=== PATIENT | male | born 1935 | race Caucasian/White ===

== ENCOUNTER 2020-08-11 00:04 | Emergency (ER) | payer OTHER, SELFPAY ==
[2020-08-11 00:22] VITALS: BP 182/80; PULSE 69; RESP 16; TEMP 36.8; O2SAT 98; BMI 27.6
[2020-08-11 00:35] LABS: Add Manual Diff / Slide Review NO; Basophils Absolute Auto 0 /uL (0-100); Basophils Percent Auto 0.6 % (0-2); Eosinophils Absolute Auto 200 /uL (0-450); Eosinophils Percent Auto 2.7 % (2-4); Lymphocytes Absolute Auto 1300 /uL (1100-4500); Lymphocytes Percent Auto 18.8 % (25-40); Mean Corpuscular HGB Conc 33.3 % (30-36); Mean Corpuscular Hemoglobin 30.2 PG (26-34); Mean Corpuscular Volume 90.8 fL (80-100); Monocytes Absolute Auto 1100 /uL (0-900); Neutrophils Absolute Auto 4300 /uL (1500-7000); Neutrophils Percent Auto 61.9 % (50-75); Platelet Count 171 X10^3/uL (150-400); Red Blood Cell Count 4.63 X10^6/uL (4.5-5.9); Red Cell Distribution Width 14.1 % (11.6-14.8)
[2020-08-11 00:41] LABS: Prothrombin Time 11.2 SECONDS (10.1-12.7)
[2020-08-11 00:43] LABS: PTT Partial Thromboplastin Tim 30 SECONDS (26.4-36.2)
[2020-08-11 00:46] LABS: Alanine Aminotransferase 27 IU/L (<50); Albumin 4.3 g/dL (3.5-5.0); Albumin Globulin Ratio 1.3 (1.0-2.8); Alkaline Phosphatase 79 U/L (38-126); Aspartate Aminotransferase 33 IU/L (17-59); BUN Creatinine Ratio 20.6 (6-22); Bilirubin Total 1.1 mg/dL (0.2-1.3); Blood Urea Nitrogen 21 mg/dL (9-20); Calcium 9.2 mg/dL (8.4-10.2); Carbon Dioxide 34 mmol/L (22-32); Chloride 100 mmol/L (98-107); Estimated Glomerular Filt Rate > 60.0 mL/min (>60); Globulin 3.2 g/dL (1.7-4.1); Glucose 113 mg/dL (80-110); HEMOLYSIS < 15 (0-50); Lipase 106 U/L (23-300); Potassium 4.5 mmol/L (3.4-5.1); Sodium 135 mmol/L (137-145); Total Protein 7.5 g/dL (6.3-8.2)
--- NOTE | 2020-08-11 00:56 | ED.ABDPAIN ---
HPI - Abdominal Pain General Chief Complaint: Abdominal Pain Stated Complaint: Pain in abd x3 days Time Seen by Provider: 08/11/20 00:10 Source: patient Mode of arrival: Ambulatory Limitations: no limitations History of Present Illness HPI narrative: 84-year-old male nonsmoker with history of hypertension presents with a chief complaint of about 3 days of right lower quadrant pain. He states that he feels like it came on rather suddenly. He states that it seems to get worse when he lays flat and is improved with sitting up. He denies any radiation of the pain. He states that is sharp and crampy in nature and 6/10 in severity. He denies any history of the same. He denies any nausea, vomiting. He has had no constipation or diarrhea. He denies any dysuria, frequency or urgency. He has had no fever or chills nor exposure to persons with known COVID. He was seen and evaluated at a walk-in clinic earlier today, urine sample was unremarkable. Related Data Allergies Allergy/AdvReac Type Severity Reaction Status Date / Time lisinopril Allergy Verified 08/11/20 00:21 Review of Systems Constitutional Constitutional: Denies chills, Denies fatigue, Denies fever(s), Denies frequent falls, Denies lethargy and Denies weakness Eyes Eyes: Denies change in vision, Denies eye discharge, Denies irritation and Denies loss of vision ENT Ears, Nose, Mouth, and Throat: Denies change in voice, Denies dizziness, Denies neck pain, Denies sore throat and Denies throat swelling Cardiovascular Cardiovascular: Denies chest pain, Denies irregular heart rhythm, Denies lightheadedness, Denies palpitations, Denies dyspnea, Denies dyspnea on exertion and Denies orthopnea Respiratory Respiratory: Denies cough, Denies dyspnea, Denies dyspnea on exertion and Denies wheezing Gastrointestinal Gastrointestinal: Reports abdominal pain, Denies change in bowel habits, Denies diarrhea, Denies nausea and Denies vomiting Musculoskeletal Musculoskeletal: Denies neck pain and Denies numbness Integumentary/Breasts Skin/Breast: Denies pruritus, Denies erythema, Denies rash and Denies wounds Neurologic Neurologic: Denies behavioral changes, Denies confusion, Denies dizziness, Denies frequent falls, Denies loss of vision, Denies numbness and Denies weakness Psychiatric Psychiatric: Denies anxiety, Denies behavioral changes, Denies confusion, Denies depression, Denies homicidal ideation and Denies suicidal ideation Endocrine Endocrine: Denies fatigue, Denies flushing and Denies palpitations Hematologic/Lymphatic Hematologic/Lymphatic: Denies easy bruising Allergic/Immunologic Allergic/Immunologic: Denies urticaria, Denies throat swelling and Denies wheezing Patient History Social History Smoking Status: Never smoker Smoking Status: Never smoker alcohol intake frequency: 0-2 drinks per day Substance Use Type: does not use Exam Narrative Exam Narrative: GENERAL: [84] year old patient appears stated age. Well-nourished, well-developed patient, in mild distress. HEAD: Atraumatic. Normocephalic. EYES: Pupils equal round and reactive. Extraocular motions intact. No scleral icterus. No injection or drainage. ENT: Nose without bleeding, purulent drainage. Throat without erythema, tonsillar hypertrophy or exudate. Airway patent. NECK: Trachea midline. Non tender CARDIOVASCULAR: Regular rate and rhythm without murmurs, gallops, or rubs. RESPIRATORY: Clear to auscultation. Breath sounds equal bilaterally. No wheezes, rales, or rhonchi. GASTROINTESTINAL: Abdomen soft, moderate right lower quadrant pain with palpation, negative Rovsing's, psoas or heel tap, nondistended. EXTREMITIES: No edema or joint tenderness. BACK: Nontender without deformity or crepitance. No flank tenderness. NEURO: AOx3. SKIN: No rash or erythema of visible areas Initial Vital Signs Initial Vital Signs: Vital Signs Temperature 98.3 F 08/11/20 00:22 Pulse Rate 69 08/11/20 00:22 Respiratory Rate 16 08/11/20 00:22 Blood Pressure 182/80 H 08/11/20 00:22 Pulse Oximetry 98 08/11/20 00:22 Course Orders Ordered: ED Orders 08/11/20 00:23 Complete Blood Count AUTO DIFF Stat Comprehensive Metabolic Panel Stat Lipase Stat Partial Thromboplastin Time Stat Prothrombin Time INR Stat 08/11/20 01:10 CT abdomen pelvis w con Stat Vital Signs Vital signs: Vital Signs - 8 hr 08/11/20 00:22 Temperature 98.3 F Pulse Rate 69 Respiratory Rate 16 Blood Pressure 182/80 H Pulse Oximetry 98 MDM - Abdominal Pain Lab Data Result diagrams: 08/11/20 00:23 08/11/20 00:23 Labs: Lab Results 08/11/20 08/11/20 08/11/20 Range/Units 00:23 00:23 00:23 WBC 7.0 (4.5-11.0) X10^3/uL RBC 4.63 (4.5-5.9) X10^6/uL Hgb 14.0 (13.5-17.5) g/dL Hct 42.0 (41-53) % MCV 90.8 (80-100) fL MCH 30.2 (26-34) PG MCHC 33.3 (30-36) % RDW 14.1 (11.6-14.8) % Plt Count 171 (150-400) X10^3/uL Neut % (Auto) 61.9 (50-75) % Lymph % (Auto) 18.8 L (25-40) % [place] % (Auto) 16.0 H (3-14) % Eos % (Auto) 2.7 (2-4) % Baso % (Auto) 0.6 (0-2) % Neut # (Auto) 4300 (0060-3726) /uL Lymph # (Auto) 1300 (8457-3486) /uL [place] # (Auto) 1100 H (0-900) /uL Eos # (Auto) 200 (0-450) /uL Baso # (Auto) 0 (0-100) /uL PT 11.2 (10.1-12.7) SECONDS INR 1.0 (0.9-1.3) APTT 30 (26.4-36.2) SECONDS Sodium 135 L (137-145) mmol/L Potassium 4.5 (3.4-5.1) mmol/L Chloride 100 (98-107) mmol/L Carbon Dioxide 34 H (22-32) mmol/L BUN 21 H (9-20) mg/dL Creatinine 1.02 (0.66-1.25) mg/dL Estimated GFR > 60.0 (>60) mL/min BUN/Creatinine Ratio 20.6 (6-22) Glucose 113 H (80-110) mg/dL Calcium 9.2 (8.4-10.2) mg/dL Total Bilirubin 1.1 (0.2-1.3) mg/dL AST 33 (17-59) IU/L ALT 27 (<50) IU/L Alkaline Phosphatase 79 (38-126) U/L Total Protein 7.5 (6.3-8.2) g/dL Albumin 4.3 (3.5-5.0) g/dL Globulin 3.2 (1.7-4.1) g/dL Albumin/Globulin Ratio 1.3 (1.0-2.8) Lipase 106 (23-300) U/L Point of care testing: Urine Dip Bedside Urine Glucose Negative Bedside Urine Bilirubin - Negative Bedside Urine Ketone - Negative Urine Specific [place] 1.010 Bedside Urine Occult Blood - Negative Bedside Urine pH 7 Bedside Urine Protein - Negative Bedside Urine Urobilinogen - Negative Bedside Urine Nitrite - Negative Bedside Urine Leukocytes - Negative Esterase Imaging Data CT scan - abdomen/pelvis: Radiologist's Impression: Wall thickening of the bladder may be secondary to cystitis or chronic outlet obstruction. Increased stool content may suggest constipation MDM Narrative Medical decision making narrative: Multiple etiologies for patient's symptoms considered including: [Constipation versus bowel obstruction versus kidney stone versus other] Patient's symptoms improved over duration of stay with above-stated therapies. Findings and discharge diagnosis discussed with patient/family followed by verbalization of understanding Return precautions discussed with patient/family whom verbalize understanding. Discharge Plan Departure Patient Disposition: Home Clinical Impression: Cystitis, Constipation Instructions: DI for Acute Cystitis Activity Restrictions/Additional Instructions: *You have been diagnosed with [ lower abdominal pain with very reassuring labs, urine and exam. CT notes thickening of the bladder, and increased stool. ] *What to do: *Take medications as directed *Follow up with your primary care provider in 2-3 days, call for an appointment. Let them know you were seen in the Emergency Department and that we ask that you be seen in follow up. I've also included contact info for our local urologist to schedule a follow up to pursue the cause of your thickened bladder *Return to ER if you should have any new, worsening or concerning symptoms, such as [ increased pain, fever > 101F, or other bothersome symptoms] Referrals: Louis Paniagua MD [Physician] -
--- NOTE | 2020-08-11 01:10 | DI.CT.S_ITS ---
PROCEDURE: CT ABDOMEN PELVIS W CON INDICATIONS: severe right lower quadrant pain TECHNIQUE: After the administration of intravenous contrast, 5 mm thick sections acquired from the diaphragm to the symphysis. 5 mm coronal and sagittal reformats were acquired. For radiation dose reduction, the following was used: automated exposure control, adjustment of mA and/or kV according to patient size. COMPARISON: None. FINDINGS: Image quality: Excellent. ABDOMEN: Lung bases: Lung bases are clear. No pleural effusion. Heart size is normal. Coronary artery calcifications. Solid organs: Liver is normal in size and enhancement. Benign cyst in the left lobe of the liver. Gallbladder is unremarkable. Biliary system is non dilated. Pancreas enhances normally. Spleen is normal in size and enhancement. No adrenal nodules. Kidneys demonstrate normal size and enhancement, without hydronephrosis. Mild stranding surrounding the kidneys. Peritoneum and bowel: Bowel loops demonstrate normal wall thickness and caliber. Appendix is not identified. No free fluid or air. Nodes and vessels: No retroperitoneal or mesenteric adenopathy by size criteria. Aorta and inferior vena cava are normal in size. Extensive calcified atherosclerotic plaque. Miscellaneous: No ventral hernias. PELVIS: Genitourinary: Bladder is not significantly distended. There may be mild stranding surrounding the urinary bladder. Prostate brachytherapy seeds. Miscellaneous: Small fat containing right inguinal hernia. No adenopathy. Bones: A few dense sclerotic foci in the sacrum, L4, and T12. Extensive DDD. No vertebral body compression fractures. IMPRESSION: 1. The appendix is not identified. No fluid collection. 2. Small fat containing right inguinal hernia. 3. Increased stool in the colon could be due to constipation. 4. Mild stranding surrounding the urinary bladder. This raises the possibility of cystitis. Prostate brachytherapy seeds. 5. A few dense sclerotic osseous foci. Suspect bone islands rather than metastatic prostate cancer. -if available recommend correlation with prior imaging. -bone scan was could also be considered for further evaluation. This report is concordant with the overnight preliminary interpretation. Additional note of sclerotic osseous foci. Dictated by: Landry Bolden M.D. on 08/11/2020 at 9:32 Approved by: Landry Bolden M.D. on 08/11/2020 at 9:41
[2020-08-11 02:58] VITALS: BP 163/77; PULSE 62; RESP 16; O2SAT 97
== END 2020-08-11 02:57 | disposition home or self-care (01) ==
PROVIDERS: Emergency Provider Emergency Medicine
DX: N30.90 Cystitis, unspecified without hematuria (principal); K59.00 Constipation, unspecified; I10 Essential (primary) hypertension
CPT/HCPCS: 36415; 74177; 80053; 81003; 83690; 85025; 85610; 85730; 99284; Q9967

== ENCOUNTER 2020-08-12 06:11 | Emergency (ER) | payer OTHER, SELFPAY ==
[2020-08-12 06:20] VITALS: BP 148/63; PULSE 64; RESP 17; TEMP 36.8; O2SAT 99; BMI 27.6
--- NOTE | 2020-08-12 06:20 | DI.RAD.S_ITS ---
PROCEDURE: XR ACUTE ABDOMEN SERIES INDICATIONS: Abdominal pain TECHNIQUE: One view chest and two views of the abdomen were acquired. COMPARISON: [facility], CT, CT ABDOMEN PELVIS W CON, 08/11/2020, 1:11. FINDINGS: Surgical changes and devices: None. Chest: Mildly prominent pulmonary interstitium. No consolidation Heart size is normal. No pleural effusions. No pneumoperitoneum. Abdomen: Scattered small bowel and colonic gas. A few loops of bowel have the thickened appearance. Small air-fluid levels. No suspicious calcifications. Visualized solid organ contours appear normal. Prostate brachytherapy seeds. Bones: No suspicious bony lesions. Minimal scoliosis. Large left vertebral body osteophyte at L1-L2. IMPRESSION: 1. Mildly prominent interstitium. This could be due to pulmonary edema or infectious/inflammatory etiology. No consolidative opacity. 2. Suspect mildly thickened loops of small bowel with small fluid levels. Findings raise the possibility of an enteritis. This report is concordant with the overnight preliminary interpretation. Dictated by: Landry Bolden M.D. on 08/12/2020 at 7:02 Approved by: Landry Bolden M.D. on 08/12/2020 at 7:06
[2020-08-12 06:21] VITALS: BP 158/67
--- NOTE | 2020-08-12 06:21 | ED_ITS ---
HPI - Abdominal Pain General Chief Complaint: Abdominal Pain Stated Complaint: Stomach pains, revisit from yesterday Time Seen by Provider: 08/12/20 06:13 Source: patient History of Present Illness HPI narrative: 84-year-old male nonsmoker with history of hypertension presents with a chief complaint of about 4 days of right lower quadrant pain. He was here yesterday and had a thorough evaluation including reassuring labs, urine and CT of the abdomen and pelvis with contrast which noted mild cystitis and large stool burden but no obstruction, appendicitis, kidney stone or other. He returns stating that he continues to have trouble with bowel movements and p asses just liquidy stool and has increasing severity and frequency of right sided abdominal pain that sometimes is made worse with motion, sometimes is improved with rest but at other times has change in severity with no apparent provocation or palliation. He denies any urinary troubles. He has had no runny nose, sore throat or fever chills. He has had no chest pain or shortness of breath. He denies nausea or vomiting MD complaint: abdominal pain and flank pain Onset (ago): day(s) Pain Consistency: intermittent Location: RLQ Severity: severe Quality: cramping and aching Radiation: none Relieving factors: movement Exacerbating factors: rest Associated symptoms: nausea and constipation Related Data Previous Rx's Medication Instructions Recorded dicyclomine 10 mg PO QID PRN #20 cap 08/12/20 Allergies Allergy/AdvReac Type Severity Reaction Status Date / Time lisinopril Allergy Verified 08/11/20 00:21 Review of Systems Constitutional Constitutional: Denies chills, Denies fatigue, Denies fever(s), Denies frequent falls, Denies lethargy and Denies weakness Eyes Eyes: Denies change in vision, Denies eye discharge, Denies irritation and Denies loss of vision ENT Ears, Nose, Mouth, and Throat: Denies change in voice, Denies dizziness, Denies neck pain, Denies sore throat and Denies throat swelling Cardiovascular Cardiovascular: Denies chest pain, Denies irregular heart rhythm, Denies lightheadedness, Denies palpitations, Denies dyspnea, Denies dyspnea on exertion and Denies orthopnea Respiratory Respiratory: Denies cough, Denies dyspnea, Denies dyspnea on exertion and Denies wheezing Gastrointestinal Gastrointestinal: Reports abdominal pain, Denies change in bowel habits, Reports constipation, Denies diarrhea, Reports nausea and Denies vomiting Musculoskeletal Musculoskeletal: Denies neck pain and Denies numbness Integumentary/Breasts Skin/Breast: Denies pruritus, Denies erythema, Denies rash and Denies wounds Neurologic Neurologic: Denies behavioral changes, Denies confusion, Denies dizziness, Denies frequent falls, Denies loss of vision, Denies numbness and Denies weakne ss Psychiatric Psychiatric: Denies anxiety, Denies behavioral changes, Denies confusion, Denies depression, Denies homicidal ideation and Denies suicidal ideation Endocrine Endocrine: Denies fatigue, Denies flushing and Denies palpitations Hematologic/Lymphatic Hematologic/Lymphatic: Denies easy bruising Allergic/Immunologic Allergic/Immunologic: Denies urticaria, Denies throat swelling and Denies wheezing Patient History Social History Smoking Status: Never smoker Smoking Status: Never smoker alcohol intake frequency: 0-2 drinks per day Substance Use Type: does not use Exam Narrative Exam Narrative: GENERAL: [84] year old patient appears stated age. Well- nourished, well-developed patient, in mild distress. Rubbing his right flank and abdomen HEAD: Atraumatic. Normocephalic. EYES: Pupils equal round and reactive. Extraocular motions intact. No scleral icterus. No injection or drainage. ENT: Nose without bleeding, purulent drainage. Throat without erythema, tonsillar hypertrophy or exudate. Airway patent. NECK: Trachea midline. Non tender CARDIOVASCULAR: Regular rate and rhythm without murmurs, gallops, or rubs. RESPIRATORY: Clear to auscultation. Breath sounds equal bilaterally. No wheezes, rales, or rhonchi. GASTROINTESTINAL: Abdomen soft, right-sided abdomen tender to palpate, nondistended. BS present in all 4 quadrants : examined while patient standing, no testicular pain or evidence of inguinal hernia EXTREMITIES: No edema or joint tenderness. BACK: Nontender without deformity or crepitance. No flank tenderness. NEURO: AOx3. SKIN: No rash or erythema of visible areas Initial Vital Signs Initial Vital Signs: Vital Signs Temperature 98.3 F 08/12/20 06:20 Pulse Rate 64 08/12/20 06:20 Respiratory Rate 17 08/12/20 06:20 Blood Pressure 148/63 H 08/12/20 06:20 Pulse Oximetry 99 08/12/20 06:20 Course Orders Ordered: Discontinued Medications Sodium Chloride (Normal Saline 0.9%) 1,000 mls @ 1,000 mls/hr IV BOLUS ONE Stop: 08/12/20 07:17 Last Infusion: 08/12/20 08:18 Dose: 0 mls/hr Documented by: Infusion: 08/12/20 07:05 Dose: 1,000 mls/hr Documented by: Infusion: 08/12/20 06:58 Dose: 0 mls/hr Documented by: Admin: 08/12/20 06:54 Dose: 1,000 mls/hr Documented by: KAMRYN Vital Signs Vital signs: Vital Signs - 8 hr 08/12/20 06:20 08/12/20 06:21 08/12/20 06:22 Temperature 98.3 F Pulse Rate 64 62 Respiratory Rate 17 Blood Pressure 148/63 H 158/67 H 148/63 H Pulse Oximetry 99 95 08/12/20 06:30 08/12/20 07:02 08/12/20 07:04 Temperature Pulse Rate 61 62 62 Respiratory Rate Blood Pressure 147/67 H Pulse Oximetry 96 96 95 MDM - Abdominal Pain Lab Data Result diagrams: 08/12/20 06:35 08/12/20 06:35 Labs: Lab Results 08/12/20 08/12/20 Range/Units 06:35 06:35 WBC 5.7 (4.5-11.0) X10^3/uL RBC 4.65 (4.5-5.9) X10^6/uL Hgb 14.1 (13.5-17.5) g/dL Hct 42.1 (41-53) % MCV 90.4 (80-100) fL MCH 30.3 (26-34) PG MCHC 33.5 (30-36) % RDW 13.6 (11.6-14.8) % Plt Count 168 (150-400) X10^3/uL Neut % (Auto) 61.2 (50-75) % Lymph % (Auto) 21.0 L (25-40) % [place] % (Auto) 14.3 H (3-14) % Eos % (Auto) 2.9 (2-4) % Baso % (Auto) 0.6 (0-2) % Neut # (Auto) 3500 (8782-7452) /uL Lymph # (Auto) 1200 (4604-3428) /uL [place] # (Auto) 800 (0-900) /uL Eos # (Auto) 200 (0-450) /uL Baso # (Auto) 0 (0-100) /uL Sodium 135 L (137-145) mmol/L Potassium 4.4 (3.4-5.1) mmol/L Chloride 102 (98-107) mmol/L Carbon Dioxide 29 (22-32) mmol/L BUN 17 (9-20) mg/dL Creatinine 0.89 (0.66-1.25) mg/dL Estimated GFR > 60.0 (>60) mL/min BUN/Creatinine Ratio 19.1 (6-22) Glucose 113 H (80-110) mg/dL Calcium 9.3 (8.4-10.2) mg/dL Point of care testing: Urine Dip Bedside Urine Glucose Negative Bedside Urine Bilirubin - Negative Bedside Urine Ketone - Negative Urine Specific [place] 1.015 Bedside Urine Occult Blood - Negative Bedside Urine pH 7.0 Bedside Urine Protein - Negative Bedside Urine Urobilinogen - Negative Bedside Urine Nitrite - Negative Bedside Urine Leukocytes - Negative Esterase Imaging Data Abdominal x-ray: Attestation: I personally reviewed and interpreted this imaging study as follows: My Impression: multiple scattered airfluid levels. Ileus vs. SBO Radiologist's Impression: No bowel obstruction. Mild fold thickening within proximal small bowel loops with scattered air-fluid levels throughout the abdomen. This constellation of findings is likely secondary to enteritis. MDM Narrative Medical decision making narrative: Patient feeling much better, currently pain free. Walks to bathroom without difficulty. NO fever, no vomiting. Reassuring Xray. Discharge Plan Departure Patient Disposition: Home Clinical Impression: Enteritis Abdominal pain Qualifiers: Abdominal location: generalized Qualified Code(s): R10.84 - Generalized abdominal pain Instructions: DI for Viral Gastroenteritis -- Adult Activity Restrictions/Additional Instructions: *You have been diagnosed with [ abdominal pain, nausea, loose stools. Your exam, labs, and Xray are very reassuring. ] *What to do: *Take medications as directed *Follow up with your primary care provider in 2-3 days, call for an appointment. Let them know you were seen in the Emergency Department and that we ask that you be seen in follow up *Return to ER if you should have any new, worsening or concerning symptoms Prescriptions: New dicyclomine 10 mg capsule 10 mg PO QID PRN (Reason: pain (scale score 7-10)) Qty: 20 RF: 0
[2020-08-12 06:22] VITALS: BP 148/63; PULSE 62; O2SAT 95
[2020-08-12 06:30] VITALS: BP 147/67; PULSE 61; O2SAT 96
[2020-08-12 06:44] LABS: Add Manual Diff / Slide Review NO; Basophils Absolute Auto 0 /uL (0-100); Basophils Percent Auto 0.6 % (0-2); Eosinophils Absolute Auto 200 /uL (0-450); Eosinophils Percent Auto 2.9 % (2-4); Hematocrit 42.1 % (41-53); Hemoglobin 14.1 g/dL (13.5-17.5); Lymphocytes Absolute Auto 1200 /uL (1100-4500); Mean Corpuscular HGB Conc 33.5 % (30-36); Mean Corpuscular Hemoglobin 30.3 PG (26-34); Mean Corpuscular Volume 90.4 fL (80-100); Monocytes Absolute Auto 800 /uL (0-900); Monocytes Percent Auto 14.3 % (3-14); Neutrophils Absolute Auto 3500 /uL (1500-7000); Neutrophils Percent Auto 61.2 % (50-75); Platelet Count 168 X10^3/uL (150-400); Red Blood Cell Count 4.65 X10^6/uL (4.5-5.9); Red Cell Distribution Width 13.6 % (11.6-14.8); White Blood Cell Count 5.7 X10^3/uL (4.5-11.0)
[2020-08-12] MEDS: SODIUM CHLORIDE 0.9% 1,000 ML 1000 ML IV (06:54)
[2020-08-12 06:55] LABS: BUN Creatinine Ratio 19.1 (6-22); Blood Urea Nitrogen 17 mg/dL (9-20); Calcium 9.3 mg/dL (8.4-10.2); Carbon Dioxide 29 mmol/L (22-32); Chloride 102 mmol/L (98-107); Estimated Glomerular Filt Rate > 60.0 mL/min (>60); Glucose 113 mg/dL (80-110); HEMOLYSIS < 15 (0-50); Potassium 4.4 mmol/L (3.4-5.1); Sodium 135 mmol/L (137-145)
[2020-08-12 07:02] VITALS: PULSE 62; O2SAT 96
[2020-08-12 07:04] VITALS: PULSE 62; O2SAT 95
== END 2020-08-12 08:20 | disposition home or self-care (01) ==
PROVIDERS: Emergency Provider Emergency Medicine
DX: A08.4 Viral intestinal infection, unspecified (principal)
CPT/HCPCS: 36415; 74022; 80048; 81003; 85025; 96360; 99283; 99284

== ENCOUNTER 2022-12-28 18:40 | Observation (INO) | payer OTHER, SELFPAY ==
[2022-12-28] VITALS (33 sets, daily range): BP systolic 160–212; BP diastolic 72–130; PULSE 57–70; RESP 13–23; TEMP 36.5; O2SAT 92–99; BMI 27.0
--- NOTE | 2022-12-28 18:43 | DI.RAD.S_ITS ---
PROCEDURE: XR CHEST 1V INDICATIONS: chest pain TECHNIQUE: One view of the chest was acquired. COMPARISON: None. FINDINGS: Surgical changes and devices: None. Lungs and pleura: Lungs are clear. No pleural effusions or pneumothorax. Mediastinum: Mediastinal contours appear normal. Heart size is normal. Bones and chest wall: No suspicious bony lesions. Overlying soft tissues appear unremarkable. IMPRESSION: No acute cardiopulmonary abnormality. Dictated by: Esau Layton M.D. on 12/28/2022 at 19:30 Approved by: Esau Layton M.D. on 12/28/2022 at 19:31
[2022-12-28 19:05] LABS: Add Manual Diff / Slide Review NO; Basophils Absolute Auto 100 /uL (0-100); Basophils Percent Auto 1.1 % (0-2); Eosinophils Absolute Auto 100 /uL (0-450); Eosinophils Percent Auto 0.9 % (2-4); Hematocrit 41.4 % (41-53); Hemoglobin 14.1 g/dL (13.5-17.5); Lymphocytes Absolute Auto 1100 /uL (1100-4500); Mean Corpuscular Hemoglobin 30.4 PG (26-34); Mean Corpuscular Volume 89.3 fL (80-100); Monocytes Absolute Auto 700 /uL (0-900); Monocytes Percent Auto 9.2 % (3-14); Neutrophils Absolute Auto 5900 /uL (1500-7000); Neutrophils Percent Auto 74.8 % (50-75); Platelet Count 158 X10^3/uL (150-400); Red Blood Cell Count 4.64 X10^6/uL (4.5-5.9); Red Cell Distribution Width 13.9 % (11.6-14.8)
--- NOTE | 2022-12-28 19:11 | ED_ITS ---
HPI - Chest Pain General Chief Complaint: Chest Pain Stated Complaint: high B/P, states chest feels funny Time Seen by Provider: 12/28/22 18:54 Source: patient Mode of arrival: Ambulatory History of Present Illness HPI narrative: Patient is a 87-year-old male history of coronary artery disease, hypertension presenting today with palpitations chest discomfort. He reports that 1 week ago he was seen evaluated at an ED in [facility] was he walked up an incline from getting his mail and felt his heart pounding. He was released from the emergency department and told to return if he should have recurrent symptoms. Today he went up the stairs in his house and he felt his heart pounding. He does not really describe shortness of breath nausea sweating or chest pain or heaviness. It resolves with rest. He says that he takes aspirin daily. He did not have to stop going up the stairs today but he felt extremely weak in the legs when he got up. Related Data Previous Rx's Medication Instructions Recorded dicyclomine 10 mg capsule 10 mg PO QID PRN pain (scale score 08/12/20 7-10) #20 caps Allergies Allergy/AdvReac Type Severity Reaction Status Date / Time lisinopril Allergy Verified 08/11/20 00:21 Review of Systems Review of Systems ROS Unobtainable: All systems reviewed & are unremarkable except as noted in HPI and below Patient History Social History Smoking Status: Never smoker Smoking Status: Never smoker alcohol intake frequency: 0-2 drinks per day Substance Use Type: does not use Exam Initial Vital Signs Initial Vital Signs: Vital Signs Temperature 97.7 F 12/28/22 18:45 Pulse Rate 62 12/28/22 18:45 Respiratory Rate 16 12/28/22 18:45 Blood Pressure 190/111 H 12/28/22 18:45 Pulse Oximetry 99 12/28/22 18:45 Oxygen Delivery Method Room Air 12/28/22 18:45 GENERAL: Alert 87-year-old male appears well-appearing and in no acute distress. HEENT: Head atraumatic,EOMI, pupils reactive, face symmetric, moist mucous membranes CARDIOVASCULAR: Regular rate and rhythm without murmurs, rubs or gallops. RESPIRATORY: Breath sounds equal bilaterally, no wheezes rales or rhonchi. ABDOMEN: Soft, nontender. Normoactive bowel sounds all 4 quadrants. No guarding or rebound. EXTREMITIES: Normal range of motion, no clubbing or edema. Neurovascularly intact NEUROLOGICAL: Alert and oriented x4. SKIN: Warm, dry, no laceration, no petechiae, no rashes or lesions. Scores HEART Score Heart Score history: Moderately Suspicious Heart Score EKG: Normal Heart Score Age: > or = 65 years old Heart Score risk factors: > 3 risk factors or hx of atherosclerotic disease Heart Score troponin: < or = to normal limit Heart Score Total: 5 Course Orders Ordered: ED Orders 12/28/22 18:43 XR chest 1V Stat EKG-12 Lead Stat 12/28/22 18:55 Complete Blood Count AUTO DIFF Stat Comprehensive Metabolic Panel Stat Lipase Stat Magnesium Stat PTT Partial Thromboplastin Ulises Stat Prothrombin Time INR Stat Troponin & CK Cardiac Panel Stat 12/28/22 20:45 Trop I [Troponin I] Stat Acetaminophen (Acetaminophen 325 Mg Tablet) 650 mg PO Q6H PRN PRN Reason: Fever/Mild Pain (1-3) Aspirin (Aspirin Ec 81 Mg Tablet) 81 mg PO DAILY [facility] Atorvastatin Calcium (Atorvastatin 20 Mg Tablet) 10 mg PO BEDTIME [facility] Enoxaparin Sodium (Enoxaparin 40 Mg/0.4 Ml Syringe) 40 mg SUBCUT DAILY [facility] Hydralazine HCl (Hydralazine 20 Mg/Ml Vial) 10 mg IV Q6HR PRN PRN Reason: SBP >180 or DBP >110 Losartan Potassium (Losartan 50 Mg Tablet) 50 mg PO DAILY [facility] Melatonin (Melatonin 3 Mg Tablet) 6 mg PO BEDTIME PRN PRN Reason: Insomnia Metoprolol Succinate (Metoprolol Er 25 Mg Tablet) 25 mg PO DAILY [facility] Naloxone HCl (Naloxone 0.4 Mg/Ml Vial) 0.2 mg IV Q2MIN PRN PRN Reason: Opiate Reversal Polyethylene Glycol (Polyethylene Glycol 3350 17 Gm Powd.Pack) 17 gm PO DAILY PRN PRN Reason: Constipation Sennosides (Sennosides 8.6 Mg Tablet) 8.6 mg PO BID PRN PRN Reason: Constipation Tamsulosin HCl (Tamsulosin 0.4 Mg Capsule) 0.4 mg PO DAILY [facility] Discontinued Medications Aspirin (Aspirin 81 Mg Chew Tab) 324 mg PO NOW ONE Stop: 12/28/22 18:44 Last Admin: 12/28/22 19:57 Dose: 324 mg Documented By: ATTILA Vital Signs Vital signs: Vital Signs - 8 hr 12/28/22 18:45 12/28/22 18:46 12/28/22 18:47 Temperature 97.7 F Pulse Rate 62 64 Respiratory Rate 16 Blood Pressure 190/111 H 190/111 H Pulse Oximetry 99 92 Oxygen Delivery Method Room Air 12/28/22 18:57 12/28/22 18:57 12/28/22 19:00 Temperature Pulse Rate 62 Respiratory Rate Blood Pressure 173/93 H 160/86 H Pulse Oximetry 99 Oxygen Delivery Method 12/28/22 19:00 12/28/22 19:10 12/28/22 19:10 Temperature Pulse Rate 61 62 Respiratory Rate Blood Pressure 190/91 H Pulse Oximetry 98 97 Oxygen Delivery Method 12/28/22 19:15 12/28/22 19:15 12/28/22 19:20 Temperature Pulse Rate 66 70 Respiratory Rate 18 Blood Pressure 177/84 H Pulse Oximetry 99 98 Oxygen Delivery Method Room Air 12/28/22 19:20 12/28/22 19:25 12/28/22 19:28 Temperature Pulse Rate 66 67 Respiratory Rate 21 18 Blood Pressure 201/91 H Pulse Oximetry 98 98 Oxygen Delivery Method 12/28/22 19:28 12/28/22 19:30 12/28/22 19:30 Temperature Pulse Rate 67 Respiratory Rate 18 Blood Pressure 184/95 H 170/77 H Pulse Oximetry 97 Oxygen Delivery Method 12/28/22 19:35 12/28/22 19:35 12/28/22 19:40 Temperature Pulse Rate 61 Respiratory Rate Blood Pressure 172/72 H 185/74 H Pulse Oximetry 98 Oxygen Delivery Method 12/28/22 19:40 12/28/22 19:45 12/28/22 19:45 Temperature Pulse Rate 59 L 61 Respiratory Rate 14 15 Blood Pressure 166/98 H Pulse Oximetry 97 Oxygen Delivery Method 12/28/22 19:50 12/28/22 19:50 12/28/22 19:55 Temperature Pulse Rate 59 L Respiratory Rate 18 Blood Pressure 183/84 H 173/77 H Pulse Oximetry 97 97 Oxygen Delivery Method Room Air 12/28/22 19:55 12/28/22 20:00 12/28/22 20:00 Temperature Pulse Rate 59 L 65 Respiratory Rate 13 20 Blood Pressure 207/92 H Pulse Oximetry 97 95 Oxygen Delivery Method 12/28/22 20:29 12/28/22 20:29 12/28/22 20:30 Temperature Pulse Rate 68 68 Respiratory Rate 20 20 Blood Pressure 196/130 H Pulse Oximetry 99 99 Oxygen Delivery Method 12/28/22 20:31 12/28/22 20:31 12/28/22 20:41 Temperature Pulse Rate 66 60 Respiratory Rate 20 Blood Pressure 212/98 H Pulse Oximetry 98 98 Oxygen Delivery Method 12/28/22 20:41 12/28/22 20:58 12/28/22 20:58 Temperature Pulse Rate 57 L Respiratory Rate 19 Blood Pressure 201/86 H 197/99 H Pulse Oximetry 99 Oxygen Delivery Method 12/28/22 21:00 12/28/22 21:00 12/28/22 21:21 Temperature Pulse Rate 57 L 61 Respiratory Rate 19 Blood Pressure 199/95 H Pulse Oximetry 99 96 Oxygen Delivery Method 12/28/22 21:30 12/28/22 21:38 12/28/22 21:38 Temperature Pulse Rate 61 59 L Respiratory Rate 19 22 Blood Pressure 192/86 H Pulse Oximetry 98 97 Oxygen Delivery Method 12/28/22 22:00 12/28/22 22:00 12/28/22 22:04 Temperature Pulse Rate 60 Respiratory Rate 23 Blood Pressure 190/108 H 192/109 H Pulse Oximetry 97 Oxygen Delivery Method MDM - Chest Pain Lab Data 12/28/22 18:55 12/28/22 18:55 Labs: Lab Results 12/28/22 12/28/22 12/28/22 Range/Units 18:55 18:55 18:55 WBC 8.0 (4.5-11.0) X10^3/uL RBC 4.64 (4.5-5.9) X10^6/uL Hgb 14.1 (13.5-17.5) g/dL Hct 41.4 (41-53) % MCV 89.3 (80-100) fL MCH 30.4 (26-34) PG MCHC 34.0 (30-36) % RDW 13.9 (11.6-14.8) % Plt Count 158 (150-400) X10^3/uL Neut % (Auto) 74.8 (50-75) % Lymph % (Auto) 14.0 L (25-40) % [place] % (Auto) 9.2 (3-14) % Eos % (Auto) 0.9 L (2-4) % Baso % (Auto) 1.1 (0-2) % Neut # (Auto) 5900 (7076-1178) /uL Lymph # (Auto) 1100 (6299-0625) /uL [place] # (Auto) 700 (0-900) /uL Eos # (Auto) 100 (0-450) /uL Baso # (Auto) 100 (0-100) /uL PT 11.5 (10.1-12.7) SECONDS INR 1.0 (0.9-1.3) APTT 29 (26-36) SECONDS Sodium 138 (137-145) mmol/L Potassium 4.0 (3.4-5.1) mmol/L Chloride 102 (98-107) mmol/L Carbon Dioxide 29 (22-32) mmol/L BUN 24 H (9-20) mg/dL Creatinine 0.95 (0.66-1.25) mg/dL Estimated GFR > 60 (>60) mL/min BUN/Creatinine Ratio 25.3 H (6-22) Glucose 99 (80-110) mg/dL Calcium 9.0 (8.4-10.2) mg/dL Magnesium 2.1 (1.6-2.3) mg/dL Total Bilirubin 1.2 (0.2-1.3) mg/dL AST 34 (17-59) IU/L ALT 31 (<50) IU/L Alkaline Phosphatase 89 (38-126) U/L Total Creatine Kinase 129 (55-170) U/L CK-MB (CK-2) TNP CK-MB (CK-2) Rel Index TNP Troponin I < 0.012 (0.01-0.034) ng/mL Total Protein 7.6 (6.3-8.2) g/dL Albumin 4.5 (3.5-5.0) g/dL Globulin 3.1 (1.7-4.1) g/dL Albumin/Globulin Ratio 1.5 (1.0-2.8) Triglycerides (35-150) mg/dL Cholesterol (140-199) mg/dL LDL Cholesterol, Calc (<100) mg/dL HDL Cholesterol (40-60) mg/dL Lipase 79 (23-300) U/L TSH (0.47-4.68) uIU/mL 12/28/22 12/28/22 12/28/22 Range/Units 18:55 18:55 20:45 WBC (4.5-11.0) X10^3/uL RBC (4.5-5.9) X10^6/uL Hgb (13.5-17.5) g/dL Hct (41-53) % MCV (80-100) fL MCH (26-34) PG MCHC (30-36) % RDW (11.6-14.8) % Plt Count (150-400) X10^3/uL Neut % (Auto) (50-75) % Lymph % (Auto) (25-40) % [place] % (Auto) (3-14) % Eos % (Auto) (2-4) % Baso % (Auto) (0-2) % Neut # (Auto) (6727-4449) /uL Lymph # (Auto) (4950-1919) /uL [place] # (Auto) (0-900) /uL Eos # (Auto) (0-450) /uL Baso # (Auto) (0-100) /uL PT (10.1-12.7) SECONDS INR (0.9-1.3) APTT (26-36) SECONDS Sodium (137-145) mmol/L Potassium (3.4-5.1) mmol/L Chloride (98-107) mmol/L Carbon Dioxide (22-32) mmol/L BUN (9-20) mg/dL Creatinine (0.66-1.25) mg/dL Estimated GFR (>60) mL/min BUN/Creatinine Ratio (6-22) Glucose (80-110) mg/dL Calcium (8.4-10.2) mg/dL Magnesium (1.6-2.3) mg/dL Total Bilirubin (0.2-1.3) mg/dL AST (17-59) IU/L ALT (<50) IU/L Alkaline Phosphatase (38-126) U/L Total Creatine Kinase (55-170) U/L CK-MB (CK-2) CK-MB (CK-2) Rel Index Troponin I 0.022 (0.01-0.034) ng/mL Total Protein (6.3-8.2) g/dL Albumin (3.5-5.0) g/dL Globulin (1.7-4.1) g/dL Albumin/Globulin Ratio (1.0-2.8) Triglycerides 61 (35-150) mg/dL Cholesterol 140 (140-199) mg/dL LDL Cholesterol, Calc 51 (<100) mg/dL HDL Cholesterol 77 H (40-60) mg/dL Lipase (23-300) U/L TSH 2.12 (0.47-4.68) uIU/mL Imaging Data Chest x-ray: Radiologist's Impression: PROCEDURE:? XR CHEST 1V ? INDICATIONS:? chest pain ? TECHNIQUE:? One view of the chest was acquired.? ? COMPARISON:? None. ? FINDINGS:? ? Surgical changes and devices:? None.? ? Lungs and pleura:? Lungs are clear.? No pleural effusions or pneumothorax.? ? Mediastinum:? Mediastinal contours appear normal.? Heart size is normal.? ? Bones and chest wall:? No suspicious bony lesions.? Overlying soft tissues appear unremarkable.? ? IMPRESSION:? No acute cardiopulmonary abnormality. ? ? Dictated by: Esau Layton M.D. on 12/28/2022 at 19:30 ? ECG Data Interpretation: EKG 1. Sinus rhythm rate 65 AR interval 256 QRS 118 QTC 436 Q-wave noted in lead [address] elevation or depression no priors to compare EKG 2. Sinus rhythm PAC noted no obvious ST changes MDM Narrative Medical decision making narrative: The patient 87-year-old male history of coronary artery disease hypertension presenting today for the 2nd time this week to an emergency department with heart palpitations worse with exertion such as going up a hill or stairs. He is quite hypertensive in the ED troponin jesica a little but is still negative 1st troponin less than 0.012 repeat troponin 0.022, could be due to hypertension. Rhythm is irregular though he does have P waves looks like there is a PAC no significant AV block appreciated. He is not having syncopal episodes but is having palpitations. No anemia leukocytosis electrolyte abnormality or Chet. Dr. Redding updated patient's symptoms test results agrees with observation Discharge Plan Departure Patient Disposition: Admitted as Observation Clinical Impression: Chest pain Admit Date/Time: 12/28/22 22:09 Admit Provider: Delio Redding
[2022-12-28 19:13] LABS: Prothrombin Time 11.5 SECONDS (10.1-12.7)
[2022-12-28 19:15] LABS: Alanine Aminotransferase 31 IU/L (<50); Albumin 4.5 g/dL (3.5-5.0); Albumin Globulin Ratio 1.5 (1.0-2.8); Alkaline Phosphatase 89 U/L (38-126); Aspartate Aminotransferase 34 IU/L (17-59); BUN Creatinine Ratio 25.3 (6-22); Bilirubin Total 1.2 mg/dL (0.2-1.3); Blood Urea Nitrogen 24 mg/dL (9-20); Carbon Dioxide 29 mmol/L (22-32); Chloride 102 mmol/L (98-107); Creatine Kinase 129 U/L (55-170); Estimated Glomerular Filt Rate > 60 mL/min (>60); Globulin 3.1 g/dL (1.7-4.1); Glucose 99 mg/dL (80-110); HEMOLYSIS 23 (0-50); Lipase 79 U/L (23-300); Magnesium 2.1 mg/dL (1.6-2.3); Sodium 138 mmol/L (137-145); Total Protein 7.6 g/dL (6.3-8.2)
[2022-12-28 19:16] LABS: PTT Partial Thromboplastin Tim 29 SECONDS (26-36)
[2022-12-28 19:27] LABS: Troponin I < 0.012 ng/mL (0.01-0.034)
[2022-12-28] MEDS: ASPIRIN 81 MG CHEW TAB 324 MG PO (19:57)
[2022-12-28 21:26] LABS: Troponin I 0.022 ng/mL (0.01-0.034)
--- NOTE | 2022-12-28 22:31 | DI.ECHO.S_ITS ---
[facility]---------+ [facility] +---------+ : : [address] : : : : [id number] : : : : Phone: [phone]+ Echocardiogram Report + + :Name: ALBERT SHARMA Study Date: 12/29/2022 Height: 70.5 in: :[facility] ReadingLocation: Weight: 191 lb : : Gender: Male BSA: 2.1 m2 : :: 1935 Age: 87 yrs BP: 136/67 mmHg: :Reason For Study: HYPERTENSIVE URGENCY : :Ordering Physician: RONDA, : :SERENA Pozo Performed By: Anabel Jasso : :Referring: SERENA BOND : + + Interpretation Summary The left ventricle is normal in size and wall thickness. Left ventricular systolic function is borderline reduced. Left ventricular ejection fraction is estimated to be 50 +/- 5%. There is hypokinesis to akinesis along the basal inferior, basal to mid inferolateral, and basal inferoseptal segments. Diastolic parameters suggest a relaxation abnormality of the left ventricle, consistent with probable normal filling pressures. The right ventricle is normal in size and function. The right ventricular systolic pressure is estimated to be at least 23 mmHg based on an estimated right atrial pressure of 3 mm Hg. The left atrium is borderline dilated. Right atrial size is normal. There is mild mitral regurgitation. There is no other significant valvular heart disease. The aortic root is normal size. Procedure: A two-dimensional transthoracic echocardiogram with color flow and Doppler was performed. The study quality was technically adequate. There is no prior echocardiogram noted for this patient. The heart rate ranged between 54-59 bpm during the study. Left Ventricle: The left ventricle is normal in size and wall thickness. Left ventricular systolic function is borderline reduced. Left ventricular ejection fraction is estimated to be 50 +/- 5%. There is hypokinesis to akinesis along the basal inferior, basal to mid inferolateral, and basal inferoseptal segments. Diastolic parameters suggest a relaxation abnormality of the left ventricle, consistent with probable normal filling pressures. Right Ventricle: The right ventricle is normal in size and function. Atria: The left atrium is borderline dilated. Right atrial size is normal. There is no Doppler evidence for an interatrial shunt. Mitral Valve: The mitral valve is normal in structure and function. There is mild mitral regurgitation. Aortic Valve: The aortic valve is trileaflet. The aortic valve opens well. There is no aortic valve stenosis. No aortic regurgitation is present. Tricuspid Valve: The tricuspid valve is normal in structure and function. There is mild tricuspid regurgitation. The right ventricular systolic pressure is estimated to be at least 23 mmHg based on an estimated right atrial pressure of 3 mm Hg. Pulmonic Valve: The pulmonic valve leaflets are thin and pliable; valve motion is normal. There is no pulmonic valvular regurgitation. There is no other significant valvular heart disease. Great Vessels: The aortic root is normal size. The dimensions of the ascending aorta are normal. The IVC is of normal diameter and collapses greater than 50% with a sniff. This suggests a low right atrial pressure of 3 mm Hg. Pericardium/ Pleura There is no pericardial effusion. There is no pleural effusion. MMode/2D Measurements & Calculations LVIDd: 4.5 cm LVOT diam: 2.0 cm LVIDs: 3.5 cm Ao root diam: 3.2 cm FS: 20.5 % asc Aorta Diam: 3.8 cm EPSS: 0.84 cm Ao Arch Diam (Prox Trans): 2.9 cm IVSd: 1.00 cm LVPWd: 0.88 cm LV isbell. diameter/BSA (cm/m^2): 2.2 LV sys. diameter/BSA (cm/m^2): 1.7 LA A2 area: 21.1 cm2 RA long axis: 5.5 cm LA A4 area: 21.2 cm2 RA area: 20.2 cm2 LA length (vol): 5.2 cm RA vol: 62.7 ml LA vol: 72.9 ml RA : 30.5 ml/m2 LA vol index: 35.4 ml/m2 IVC diam: 1.5 cm RVD1 (basal): 3.8 cm RVD2 (mid): 3.1 cm TAPSE: 2.0 cm Doppler Measurements & Calculations Ao V2 max: 133.3 cm/sec LVOT Max Tony: 105.8 cm/sec Ao V2 mean: 88.7 cm/sec LV V1 max P.6 mmHg Ao max P.1 mmHg LV V1 VTI: 22.7 cm Ao mean P.6 mmHg LULÚ(I,D): 2.0 cm2 Ao V2 VTI: 34.4 cm LULÚ(V,D): 2.4 cm2 sev ratio: 0.66 LULÚ indexed to BSA (cm^2/m^2): 0.98 MV E max tony: 76.9 cm/sec TR max tony: 217.3 cm/sec MV A max tony: 111.4 cm/sec TR max P.9 mmHg MV E/A: 0.69 PA V2 max: 85.8 cm/sec Med Peak E' Tony: 6.7 cm/sec PA V2 mean: 58.3 cm/sec E/E' med: 11.5 PA mean P.5 mmHg Lat Peak E' Tony: 7.9 cm/sec PA pr(Accel): 39.6 mmHg E/E' lat: 9.8 E/e' average: 10.6 MV dec time: 0.29 sec SV(LVOT): 69.6 ml Reading Physician:02:24 PM
--- NOTE | 2022-12-28 22:40 | P.HP_ITS ---
History of Present Illness History of Present Illness Date Patient Seen: 12/28/22 Time Patient Seen: 22:00 Chief complaint: high B/P, states chest feels funny Narrative: Teodoro Beltre is an 87yo M with PMH of CAD s/p HÉCTOR 12 years ago, HTN, HLD, and BPH who presents with worsening exertional weakness and feelings of his heart pounding. Patient initially presented to the ED in [place] for similar symptoms about a week ago and was sent home. He did not have an echo or stress test at that time. 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 He denies any chest pain or SOB. He says his BP normally runs around 120-130's sytolic but he last checked it a couple days ago and it was 101 systolic. Reports compliance with his home BP meds. He has noticed some dizziness when getting out of bed, mostly at night when he gets up to urinate. No syncope. His heart attack 12 years ago consisted of him syncopizing and waking up drenched in sweat. He was helicoptered from the [place] ED to [facility] for a STEMI and had an emergent PCI with stent. He never had chest pain at that time. He currently denies CP, SOB, NV, diaphoresis, leg swelling, orthopnea, headache or visual changes. In the ED patient was found to have a BP of 190/111 and got up to 212/92. EKG was normal and without ST changes. Trops negative x2. CXR normal. [facility] Social History Smoking Status: Never smoker Meds Home Medications and Allergies Home Medications Medication Instructions Recorded Confirmed Type dicyclomine 10 mg capsule 10 mg PO QID PRN pain (scale score 08/12/20 Rx 7-10) #20 caps Allergies Allergy/AdvReac Type Severity Reaction Status Date / Time lisinopril Allergy Verified 08/11/20 00:21 Review of Systems Review of Systems Narrative: All other systems reviewed with the patient and are negative unless otherwise stated. Exam Vital Signs (past 8 hours): - 12/28/22 18:45 12/28/22 18:46 12/28/22 18:47 Temperature 97.7 F Pulse Rate 62 64 Respiratory Rate 16 Blood Pressure 190/111 H 190/111 H Pulse Oximetry 99 92 Oxygen Delivery Method Room Air 12/28/22 18:57 12/28/22 18:57 12/28/22 19:00 Temperature Pulse Rate 62 Respiratory Rate Blood Pressure 173/93 H 160/86 H Pulse Oximetry 99 Oxygen Delivery Method 12/28/22 19:00 12/28/22 19:10 12/28/22 19:10 Temperature Pulse Rate 61 62 Respiratory Rate Blood Pressure 190/91 H Pulse Oximetry 98 97 Oxygen Delivery Method 12/28/22 19:15 12/28/22 19:15 12/28/22 19:20 Temperature Pulse Rate 66 70 Respiratory Rate 18 Blood Pressure 177/84 H Pulse Oximetry 99 98 Oxygen Delivery Method Room Air 12/28/22 19:20 12/28/22 19:25 12/28/22 19:28 Temperature Pulse Rate 66 67 Respiratory Rate 21 18 Blood Pressure 201/91 H Pulse Oximetry 98 98 Oxygen Delivery Method 12/28/22 19:28 12/28/22 19:30 12/28/22 19:30 Temperature Pulse Rate 67 Respiratory Rate 18 Blood Pressure 184/95 H 170/77 H Pulse Oximetry 97 Oxygen Delivery Method 12/28/22 19:35 12/28/22 19:35 12/28/22 19:40 Temperature Pulse Rate 61 Respiratory Rate Blood Pressure 172/72 H 185/74 H Pulse Oximetry 98 Oxygen Delivery Method 12/28/22 19:40 12/28/22 19:45 12/28/22 19:45 Temperature Pulse Rate 59 L 61 Respiratory Rate 14 15 Blood Pressure 166/98 H Pulse Oximetry 97 Oxygen Delivery Method 12/28/22 19:50 12/28/22 19:50 12/28/22 19:55 Temperature Pulse Rate 59 L Respiratory Rate 18 Blood Pressure 183/84 H 173/77 H Pulse Oximetry 97 97 Oxygen Delivery Method Room Air 12/28/22 19:55 12/28/22 20:00 12/28/22 20:00 Temperature Pulse Rate 59 L 65 Respiratory Rate 13 20 Blood Pressure 207/92 H Pulse Oximetry 97 95 Oxygen Delivery Method 12/28/22 20:29 12/28/22 20:29 12/28/22 20:30 Temperature Pulse Rate 68 68 Respiratory Rate 20 20 Blood Pressure 196/130 H Pulse Oximetry 99 99 Oxygen Delivery Method 12/28/22 20:31 12/28/22 20:31 12/28/22 20:41 Temperature Pulse Rate 66 60 Respiratory Rate 20 Blood Pressure 212/98 H Pulse Oximetry 98 98 Oxygen Delivery Method 12/28/22 20:41 12/28/22 20:58 12/28/22 20:58 Temperature Pulse Rate 57 L Respiratory Rate 19 Blood Pressure 201/86 H 197/99 H Pulse Oximetry 99 Oxygen Delivery Method 12/28/22 21:00 12/28/22 21:00 12/28/22 21:21 Temperature Pulse Rate 57 L 61 Respiratory Rate 19 Blood Pressure 199/95 H Pulse Oximetry 99 96 Oxygen Delivery Method 12/28/22 21:30 12/28/22 21:38 12/28/22 21:38 Temperature Pulse Rate 61 59 L Respiratory Rate 19 22 Blood Pressure 192/86 H Pulse Oximetry 98 97 Oxygen Delivery Method Oxygen Delivery Method Room Air Narrative Exam Narrative: GEN: no acute distress, appears younger than stated age HEENT: moist mucous membranes, PERRL NECK: trachea midline, no JVD CV: regular rate and rhythm, no murmurs PULM: clear bilaterally ABD: soft, nontender, nondistended, no organomegaly EXT: warm and well perfused with no edema NEURO: awake, alert, oriented, no focal deficits Objective Labs 12/28/22 18:55 12/28/22 18:55 Labs: Laboratory Results - last 24 hr 12/28/22 12/28/22 12/28/22 18:55 18:55 18:55 WBC 8.0 RBC 4.64 Hgb 14.1 Hct 41.4 MCV 89.3 MCH 30.4 MCHC 34.0 RDW 13.9 Plt Count 158 Neut % (Auto) 74.8 Lymph % (Auto) 14.0 L [place] % (Auto) 9.2 Eos % (Auto) 0.9 L Baso % (Auto) 1.1 Neut # (Auto) 5900 Lymph # (Auto) 1100 [place] # (Auto) 700 Eos # (Auto) 100 Baso # (Auto) 100 PT 11.5 INR 1.0 APTT 29 Sodium 138 Potassium 4.0 Chloride 102 Carbon Dioxide 29 BUN 24 H Creatinine 0.95 Estimated GFR > 60 BUN/Creatinine Ratio 25.3 H Glucose 99 Calcium 9.0 Magnesium 2.1 Total Bilirubin 1.2 AST 34 ALT 31 Alkaline Phosphatase 89 Total Creatine Kinase 129 CK-MB (CK-2) TNP CK-MB (CK-2) Rel Index TNP Troponin I < 0.012 Total Protein 7.6 Albumin 4.5 Globulin 3.1 Albumin/Globulin Ratio 1.5 Lipase 79 12/28/22 20:45 WBC RBC Hgb Hct MCV MCH MCHC RDW Plt Count Neut % (Auto) Lymph % (Auto) [place] % (Auto) Eos % (Auto) Baso % (Auto) Neut # (Auto) Lymph # (Auto) [place] # (Auto) Eos # (Auto) Baso # (Auto) PT INR APTT Sodium Potassium Chloride Carbon Dioxide BUN Creatinine Estimated GFR BUN/Creatinine Ratio Glucose Calcium Magnesium Total Bilirubin AST ALT Alkaline Phosphatase Total Creatine Kinase CK-MB (CK-2) CK-MB (CK-2) Rel Index Troponin I 0.022 Total Protein Albumin Globulin Albumin/Globulin Ratio Lipase Assessment & Plan Assessment & Plan narrative: # hypertensive urgency, with exertional weakness -blood pressure with systolic up to 212/98 in ED, was 198/111 on arrival. Normally 120-130's at home. -patient without end-organ damage or chest pain, NV, headache -hydralazine 10mg q6h PRN for systolic >180 or diastolic >110, avoiding labetalol due to bradycardia -continue home losartan and metoprolol -check echo -consider nuclear stress test given risk factors and weakness, patient interested in this so was ordered but may be delayed by holiday and better done as outpatient -check AM trop, TSH level -tele # orthostasis -patient notes dizziness at night when standing up to use the restroom -check orthostatics # CAD s/p HÉCTOR -continue aspirin and statin # HLD -continue statin # BPH -continue flomax Code status is full code. DVT prophylaxis with Lovenox. Proxy is Lita. I have reviewed home meds and used all available resources to reconcile the home meds. This patient will be admitted as observation and will require less than 2 midnights of hospital time to treat hypertensive urgency.
[2022-12-28 22:50] LABS: Cholesterol 140 mg/dL (140-199); HDL Cholesterol 77 mg/dL (40-60); LDL Cholesterol Calculated 51 mg/dL (<100); Triglycerides 61 mg/dL (35-150)
[2022-12-28 23:21] LABS: TSH w/ Reflex to FT4 2.12 uIU/mL (0.47-4.68)
[2022-12-29] VITALS (8 sets, daily range): BP systolic 125–161; BP diastolic 52–70; PULSE 51–64; RESP 18–22; TEMP 36–36.7; O2SAT 95–98
[2022-12-29 05:55] LABS: Add Manual Diff / Slide Review NO; Basophils Absolute Auto 0 /uL (0-100); Basophils Percent Auto 0.8 % (0-2); Eosinophils Absolute Auto 200 /uL (0-450); Eosinophils Percent Auto 3.2 % (2-4); Hematocrit 38.6 % (41-53); Hemoglobin 13.1 g/dL (13.5-17.5); Lymphocytes Absolute Auto 1200 /uL (1100-4500); Lymphocytes Percent Auto 23.7 % (25-40); Mean Corpuscular HGB Conc 33.8 % (30-36); Mean Corpuscular Hemoglobin 30.4 PG (26-34); Mean Corpuscular Volume 89.8 fL (80-100); Monocytes Absolute Auto 700 /uL (0-900); Monocytes Percent Auto 13.1 % (3-14); Neutrophils Absolute Auto 3100 /uL (1500-7000); Neutrophils Percent Auto 59.2 % (50-75); Platelet Count 150 X10^3/uL (150-400); Red Cell Distribution Width 13.5 % (11.6-14.8); White Blood Cell Count 5.2 X10^3/uL (4.5-11.0)
[2022-12-29 06:03] LABS: BUN Creatinine Ratio 23.2 (6-22); Blood Urea Nitrogen 19 mg/dL (9-20); Calcium 8.6 mg/dL (8.4-10.2); Carbon Dioxide 28 mmol/L (22-32); Chloride 104 mmol/L (98-107); Estimated Glomerular Filt Rate > 60 mL/min (>60); Glucose 93 mg/dL (80-110); HEMOLYSIS 18 (0-50); Potassium 3.7 mmol/L (3.4-5.1); Sodium 136 mmol/L (137-145)
[2022-12-29 06:15] LABS: Troponin I < 0.012 ng/mL (0.01-0.034)
[2022-12-29] MEDS: METOPROLOL ER 25 MG TABLET PO (09:25)
[2022-12-29] MEDS: ASPIRIN EC 81 MG TABLET PO (09:25)
[2022-12-29] MEDS: ENOXAPARIN 40 MG/0.4 ML SYRINGE SUBCUT (09:25)
[2022-12-29] MEDS: LOSARTAN 50 MG TABLET PO (09:25)
[2022-12-29] MEDS: TAMSULOSIN 0.4 MG CAPSULE PO (09:25)
--- NOTE | 2022-12-29 10:19 | CM.DANOTE ---
DCP: Case received, EMR reviewed and met with patient. Daughter, was also at bedside. Introduced self and role. Was able to obtain information regarding patient's baseline activity status prior to hospitalization. DCP assessment completed with information currently available. Patient is an 87 year old male who admitted yesterday afternoon to the care of the hospitalist team. PCP: [facility] in [facility] Payer: confirmed: [facility]. Patient came to the hospital via private vehicle secondary to having chest discomfort. Notes indicate that patient had been recently waling up an incline, felt his heart pounding. Patient was noted to have hypertensive urgency with exertional weakness. Systolic BP was 212. Patient was admitted for chest pain, hypertensive urgency. He is having an echo today. Met with patient in his room, he is alert and oriented, and was sitting on the edge of his bed. Confirmed that he resides in [place] with spouse, Lita. His daughter was in the room. He is independent at his baseline, he is still working as a contractor, does some plumbing and electrical work. He does get his medical care at [facility] in [facility]. P: DCP to continue to follow. Patient should be able to go home when deemed medically stable. Marilu Orosco RN/Manager Motor Discharge Planning/Care Management CM Discharge Assessment Start: 12/29/22 10:17 Freq: Status: Active Protocol: Document 12/29/22 10:17 (Rec: 12/29/22 10:19 [id number]) Discharge Planning Assessment Assigned Facing Baster Jumpbasting Marilu Orosco RN/Manager Motor Advance Directives? No History Provided By Patient,Medical Record Prior Living Arrangements House Household Members spouse Type of transporation used prior to Drives own vehicle admit Independent with ADL's Yes Is patient alert and oriented? Yes Caregiver for Another No Barriers to Discharge No Discharge Plan Home Transportation Arrangement Daughter Referrals Initiated None needed Whiteboard Updated in Patient Room with Yes name and ext. # of Facing Baster Jumpbasting Review Status In Process Next Review Type Continued Stay Review
--- NOTE | 2022-12-29 12:11 | PC.NURSE ---
Patients blood pressure wnl. He denies chest pain and had his echo done. Waiting on results and then maybe patient can go home.
--- NOTE | 2022-12-29 14:11 | PM.PN.1 ---
Subjective Subjective Interval history: 87 M admitted with exertional weakness, no changes today. BP is much improved this afternoon. Orthostatics were negative. TTE pending, we discussed risks and benefits of continued observation with stress testing tomorrow (not available today given holiday) or discharge home with outpatient follow up, he elected for continued observation with stress testing tomorrow. Exam Vital Signs (past 8 hours): - 12/29/22 08:04 12/29/22 09:25 12/29/22 12:10 Temperature 96.8 F L 97.2 F L Pulse Rate 55 L 60 54 L Pulse Rate [Orthostatic Lying] Pulse Rate [Orthostatic Sitting] Pulse Rate [Orthostatic Standing] Respiratory Rate 22 20 Blood Pressure 152/70 H 136/67 125/62 Blood Pressure [Orthostatic Lying] Blood Pressure [Orthostatic Sitting] Blood Pressure [Orthostatic Standing] Pulse Oximetry 97 98 Oxygen Flow Rate 0 0 12/29/22 12:18 Temperature Pulse Rate Pulse Rate [Orthostatic Lying] 54 L Pulse Rate [Orthostatic Sitting] 56 L Pulse Rate [Orthostatic Standing] 64 Respiratory Rate Blood Pressure Blood Pressure [Orthostatic Lying] 140/52 L Blood Pressure [Orthostatic Sitting] 161/67 H Blood Pressure [Orthostatic Standing] 154/66 H Pulse Oximetry Oxygen Flow Rate Oxygen Delivery Method Room Air Oxygen Flow Rate 0 Narrative Exam Narrative: GEN: no acute distress, appears younger than stated age HEENT: moist mucous membranes, PERRL NECK: trachea midline, no JVD CV: regular rate and rhythm, no murmurs PULM: clear bilaterally ABD: soft, nontender, nondistended, no organomegaly EXT: warm and well perfused with no edema NEURO: awake, alert, oriented, no focal deficits Objective Labs 12/29/22 05:15 12/29/22 05:15 Labs: Laboratory Results - last 24 hr 12/28/22 12/28/22 12/28/22 18:55 18:55 18:55 WBC 8.0 RBC 4.64 Hgb 14.1 Hct 41.4 MCV 89.3 MCH 30.4 MCHC 34.0 RDW 13.9 Plt Count 158 Neut % (Auto) 74.8 Lymph % (Auto) 14.0 L [place] % (Auto) 9.2 Eos % (Auto) 0.9 L Baso % (Auto) 1.1 Neut # (Auto) 5900 Lymph # (Auto) 1100 [place] # (Auto) 700 Eos # (Auto) 100 Baso # (Auto) 100 PT 11.5 INR 1.0 APTT 29 Sodium 138 Potassium 4.0 Chloride 102 Carbon Dioxide 29 BUN 24 H Creatinine 0.95 Estimated GFR > 60 BUN/Creatinine Ratio 25.3 H Glucose 99 Calcium 9.0 Magnesium 2.1 Total Bilirubin 1.2 AST 34 ALT 31 Alkaline Phosphatase 89 Total Creatine Kinase 129 CK-MB (CK-2) TNP CK-MB (CK-2) Rel Index TNP Troponin I < 0.012 Total Protein 7.6 Albumin 4.5 Globulin 3.1 Albumin/Globulin Ratio 1.5 Triglycerides Cholesterol LDL Cholesterol, Calc HDL Cholesterol Lipase 79 TSH 12/28/22 12/28/22 12/28/22 18:55 18:55 20:45 WBC RBC Hgb Hct MCV MCH MCHC RDW Plt Count Neut % (Auto) Lymph % (Auto) [place] % (Auto) Eos % (Auto) Baso % (Auto) Neut # (Auto) Lymph # (Auto) [place] # (Auto) Eos # (Auto) Baso # (Auto) PT INR APTT Sodium Potassium Chloride Carbon Dioxide BUN Creatinine Estimated GFR BUN/Creatinine Ratio Glucose Calcium Magnesium Total Bilirubin AST ALT Alkaline Phosphatase Total Creatine Kinase CK-MB (CK-2) CK-MB (CK-2) Rel Index Troponin I 0.022 Total Protein Albumin Globulin Albumin/Globulin Ratio Triglycerides 61 Cholesterol 140 LDL Cholesterol, Calc 51 HDL Cholesterol 77 H Lipase TSH 2.12 12/29/22 12/29/22 12/29/22 05:15 05:15 05:15 WBC 5.2 RBC 4.30 L Hgb 13.1 L Hct 38.6 L MCV 89.8 MCH 30.4 MCHC 33.8 RDW 13.5 Plt Count 150 Neut % (Auto) 59.2 Lymph % (Auto) 23.7 L [place] % (Auto) 13.1 Eos % (Auto) 3.2 Baso % (Auto) 0.8 Neut # (Auto) 3100 Lymph # (Auto) 1200 [place] # (Auto) 700 Eos # (Auto) 200 Baso # (Auto) 0 PT INR APTT Sodium 136 L Potassium 3.7 Chloride 104 Carbon Dioxide 28 BUN 19 Creatinine 0.82 Estimated GFR > 60 BUN/Creatinine Ratio 23.2 H Glucose 93 Calcium 8.6 Magnesium Total Bilirubin AST ALT Alkaline Phosphatase Total Creatine Kinase CK-MB (CK-2) CK-MB (CK-2) Rel Index Troponin I < 0.012 Total Protein Albumin Globulin Albumin/Globulin Ratio Triglycerides Cholesterol LDL Cholesterol, Calc HDL Cholesterol Lipase TSH PFSH Social History household members: spouse Smoking Status: Never smoker Assessment & Plan Assessment & Plan narrative: # hypertensive urgency, with exertional weakness -blood pressure with systolic up to 212/98 in ED, was 198/111 on arrival. Normally 120-130's at home. Improved today. -patient without end-organ damage or chest pain, NV, headache -hydralazine 10mg q6h PRN for systolic >180 or diastolic >110, avoiding labetalol due to bradycardia -continue home losartan and metoprolol -TTE pending, given presenting symptoms, will obtain stress testing for further risk stratification. No nuclear available today, will need to be tomorrow. -orthostatic vitals negative. -troponins negative. # CAD s/p HÉCTOR -continue aspirin and statin # HLD -continue statin # BPH -continue flomax Dispo: likely home after stress testing, possible transfer if stress testing positive. COVID-19 COVID-19 status: Not tested Quality VTE Deep Vein Thrombosis/Pulmonary Embolism Present on Admission: No
[2022-12-29] MEDS: ATORVASTATIN 20 MG TABLET 10 MG PO (20:12)
[2022-12-29] MEDS: SODIUM CHLORIDE 0.9% FLUSH 10 ML IV (20:13)
[2022-12-29 23:17] LABS: BUN Creatinine Ratio 21.7 (6-22); Blood Urea Nitrogen 18 mg/dL (9-20); Calcium 8.6 mg/dL (8.4-10.2); Carbon Dioxide 29 mmol/L (22-32); Chloride 104 mmol/L (98-107); Estimated Glomerular Filt Rate > 60 mL/min (>60); Glucose 95 mg/dL (80-110); HEMOLYSIS < 15 (0-50); Magnesium 2.2 mg/dL (1.6-2.3); Potassium 4.1 mmol/L (3.4-5.1); Sodium 137 mmol/L (137-145)
[2022-12-30 00:19] VITALS: BP 149/72; PULSE 60; RESP 18; TEMP 36.6; O2SAT 98
[2022-12-30 04:21] VITALS: BP 138/67; PULSE 72; RESP 18; TEMP 36.6; O2SAT 96
[2022-12-30 05:57] LABS: Add Manual Diff / Slide Review NO; Basophils Absolute Auto 0 /uL (0-100); Basophils Percent Auto 0.7 % (0-2); Eosinophils Absolute Auto 200 /uL (0-450); Eosinophils Percent Auto 3.4 % (2-4); Hematocrit 39.6 % (41-53); Hemoglobin 13.2 g/dL (13.5-17.5); Lymphocytes Absolute Auto 1100 /uL (1100-4500); Lymphocytes Percent Auto 19.8 % (25-40); Mean Corpuscular HGB Conc 33.4 % (30-36); Mean Corpuscular Hemoglobin 29.6 PG (26-34); Mean Corpuscular Volume 88.6 fL (80-100); Monocytes Absolute Auto 800 /uL (0-900); Monocytes Percent Auto 13.5 % (3-14); Neutrophils Absolute Auto 3600 /uL (1500-7000); Neutrophils Percent Auto 62.6 % (50-75); Platelet Count 147 X10^3/uL (150-400); Red Blood Cell Count 4.47 X10^6/uL (4.5-5.9); Red Cell Distribution Width 13.9 % (11.6-14.8); White Blood Cell Count 5.7 X10^3/uL (4.5-11.0)
[2022-12-30 06:12] LABS: BUN Creatinine Ratio 18.6 (6-22); Blood Urea Nitrogen 16 mg/dL (9-20); Calcium 8.6 mg/dL (8.4-10.2); Carbon Dioxide 29 mmol/L (22-32); Chloride 105 mmol/L (98-107); Estimated Glomerular Filt Rate > 60 mL/min (>60); Glucose 96 mg/dL (80-110); HEMOLYSIS < 15 (0-50); Potassium 3.7 mmol/L (3.4-5.1); Sodium 138 mmol/L (137-145)
[2022-12-30 06:21] LABS: NT-proBNP (BNP-Adult 18+) 329 pg/mL (<450)
[2022-12-30 08:00] VITALS: BP 136/63; PULSE 66; RESP 18; TEMP 36.5; O2SAT 96
[2022-12-30] MEDS: TAMSULOSIN 0.4 MG CAPSULE PO (09:15)
[2022-12-30] MEDS: ASPIRIN EC 81 MG TABLET PO (09:15)
[2022-12-30] MEDS: ENOXAPARIN 40 MG/0.4 ML SYRINGE SUBCUT (09:18)
[2022-12-30] MEDS: SODIUM CHLORIDE 0.9% FLUSH 10 ML IV (09:18)
--- NOTE | 2022-12-30 13:07 | P.DS_ITS ---
History of Present Illness History of Present Illness Date Patient Seen: 12/30/22 Time Patient Seen: 13:07 Chief complaint: high B/P, states chest feels funny Narrative: Per admitting provider, Teodoro Beltre is an 87yo M with PMH of CAD s/p HÉCTOR 12 years ago, HTN, HLD, and BPH who presents with worsening exertional weakness and feelings of his heart pounding. Patient initially presented to the ED in [place] for similar symptoms about a week ago and was sent home. He did not have an echo or stress test at that time. 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 He denies any chest pain or SOB. He says his BP normally runs around 120-130's sytolic but he last checked it a couple days ago and it was 101 systolic. Reports compliance with his home BP meds. He has noticed some dizziness when getting out of bed, mostly at night when he gets up to urinate. No syncope. His heart attack 12 years ago consisted of him syncopizing and waking up drenched in sweat. He was helicoptered from the [facility] ED to [facility] for a STEMI and had an emergent PCI with stent. He never had chest pain at that time. He currently denies CP, SOB, NV, diaphoresis, leg swelling, orthopnea, headache or visual changes. In the ED patient was found to have a BP of 190/111 and got up to 212/92. EKG was normal and without ST changes. Trops negative x2. CXR normal. Discharge Providers Provider Date of admission: 12/28/22 22:09 Discharge Date: 12/30/22 Primary care physician: Bharat Lawson MD Discharge provider: Luis Maurer DO Summary Hospital Course Discharge Diagnosis: # hypertensive urgency, with exertional weakness # CAD s/p HÉCTOR # HLD # BPH Hospital Course: This is an 87 year old male who was admitted with exertional palpitations and hypertensive urgency. Troponins were negative, patient elected to stay an additional day (holiday weekend) for stress testing given his risk factors, symptoms, and that this was his 2nd episode recently. Stress testing and echoca rdiogram showed no evidence of acute ischemia. Blood pressures were labile but generally controlled at the time of discharge with his home medications. No changes to his home medications are recommended at the time of discharge. I recommend he follow up with his well driller and PCP as previously scheduled, possibly sooner if symptoms recur for consideration of a holter monitor based on presenting symptoms this admission. Time Spent with Patient Time spent: Greater than 30 minutes Exam Vital Signs (past 8 hours): - 12/30/22 08:00 Temperature 97.7 F Pulse Rate 66 Respiratory Rate 18 Blood Pressure 136/63 Pulse Oximetry 96 Oxygen Flow Rate 0 Oxygen Delivery Method Room Air Oxygen Flow Rate 0 Narrative Exam Narrative: GEN: no acute distress, appears younger than stated age HEENT: moist mucous membranes, PERRL NECK: trachea midline, no JVD CV: regular rate and rhythm, no murmurs PULM: clear bilaterally ABD: soft, nontender, nondistended, no organomegaly EXT: warm and well perfused with no edema NEURO: awake, alert, oriented, no focal deficits Objective Labs 12/30/22 05:25 12/30/22 05:25 Labs: Laboratory Results - last 24 hr 12/28/22 12/29/22 12/30/22 18:55 22:45 05:25 WBC 5.7 RBC 4.47 L Hgb 13.2 L Hct 39.6 L MCV 88.6 MCH 29.6 MCHC 33.4 RDW 13.9 Plt Count 147 L Neut % (Auto) 62.6 Lymph % (Auto) 19.8 L [place] % (Auto) 13.5 Eos % (Auto) 3.4 Baso % (Auto) 0.7 Neut # (Auto) 3600 Lymph # (Auto) 1100 [place] # (Auto) 800 Eos # (Auto) 200 Baso # (Auto) 0 Sodium 137 Potassium 4.1 Chloride 104 Carbon Dioxide 29 BUN 18 Creatinine 0.83 Estimated GFR > 60 BUN/Creatinine Ratio 21.7 Glucose 95 Hgb A1c (Ref Lab) 6.0 H Calcium 8.6 Magnesium 2.2 NT-Pro-B Natriuret Pep 12/30/22 12/30/22 05:25 05:25 WBC RBC Hgb Hct MCV MCH MCHC RDW Plt Count Neut % (Auto) Lymph % (Auto) [place] % (Auto) Eos % (Auto) Baso % (Auto) Neut # (Auto) Lymph # (Auto) [place] # (Auto) Eos # (Auto) Baso # (Auto) Sodium 138 Potassium 3.7 Chloride 105 Carbon Dioxide 29 BUN 16 Creatinine 0.86 Estimated GFR > 60 BUN/Creatinine Ratio 18.6 Glucose 96 Hgb A1c (Ref Lab) Calcium 8.6 Magnesium NT-Pro-B Natriuret Pep 329 PFSH Social History household members: spouse Smoking Status: Never smoker Discharge Plan Discharge Plan Patient Disposition: Home Provider Discharge Comment: You were admitted to the hospital for further evaluation of palpitations and weakness with ambulation. Echocardiogram and stress testing showed no concerning findings. Please follow up with your PCP and well driller as previously scheduled. No medication changes are recommended at this time. Discharge orders & Medications Prescriptions: New aspirin 81 mg Tablet,Delayed Release (Dr/Ec) 81 mg PO DAILY 30 Days Qty: 30 0RF Continued losartan 50 mg tablet 50 mg PO DAILY tamsulosin 0.4 mg capsule 0.4 mg PO DAILY simvastatin 20 mg tablet 20 mg PO DAILY metoprolol succinate 25 mg tablet extended release 24 hr 25 mg PO DAILY Medication counseling provided by Pharmacist: Yes Follow up/Referrals: Miscellaneous,DoctorMD [Non-Staff] - Bharat Lawson MD [Primary Care Provider] - Diet/Activity/Treatments Diet: Diet as Tolerated and Regular Activity: As tolerated Visit Report/Discharge Packet Stand Alone Forms: Patient Portal/API, Stroke Signs & Symptoms Discharge Data Primary Care Provider: Bharat Lawson Attending Provider: Delio Redding Admit Date/Time: 12/28/22 22:09 Quality VTE Deep Vein Thrombosis/Pulmonary Embolism Present on Admission: No
[2022-12-30 13:25] VITALS: BP 123/58; PULSE 74; RESP 18; TEMP 36.3; O2SAT 95
--- NOTE | 2022-12-30 13:56 | DI.NM.S_ITS ---
DATE OF SERVICE: 12/30/2022 STUDY: Exercise perfusion study. INDICATIONS: Exertional weakness with underlying CAD, hypertension and hyperlipidemia. RADIOPHARMACEUTICAL: 26.5 millicuries of technetium-99m Myoview IV was injected at stress and 12.1 millicuries of technetium-99m Myoview IV was injected at rest. CARDIAC STRESS: The patient underwent exercise perfusion study under the supervision of attending staff. The patient walked on Mathew protocol for 6 minutes and 58 seconds, achieved 114 percent of target heart rate with maximum heart rate of 151 beats per minute. Resting blood pressure 150/86 and peak blood pressure 168/84 mmHg. Achieved 10.1 METS of workload. KERMIT -66%. No chest pain or anginal symptoms. Baseline rhythm was sinus with nonspecific ST-T changes and intermittent PACs. During exercise, the patient developed 1.5 to 2.[address] depression in leads V5 to V6, as well as T-wave inversion in inferior leads and some ST depression in inferior leads. Frequent PACs, as well as PVCs. Those changes got resolved in 3 minutes in recovery. RAW DATA: There is increased subdiaphragmatic activity. Gut shadow seen all the way up to the heart. Suspect hiatal hernia. GATED STUDY: Resting LV ejection fraction 71 and stress LV ejection fraction 73%. Hypokinetic base to mid inferior wall. Resting end-diastolic volume 147 mL. TID ratio 0.74 which is within normal limits. Lung/heart ratio 0.22, which is within normal limits. MYOCARDIAL PERFUSION SCAN: Stress supine, resting supine and stress prone images were compared to each other. There is no reversible ischemia. There is a predominantly fixed moderate size severely decreased perfusion of base to mid inferior wall extending into the basal inferolateral wall, as well as mild fixed defect of distal anteroseptum, as well as basal anterior wall. No obvious reversible ischemia. 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 Also suspect infarction of the distal anterior septum and basal anterior wall. No significant reversible ischemia. Overall left ventricular function is preserved. Excellent exercise tolerance. KERMIT is -66%. No anginal symptoms however ischemic EKG changes seen which got reverted back to normal in 3 minutes in recovery. Frequent PACs at baseline, which got more pronounced during exercise. No sustained ventricular tachycardia or obvious AFib. Teodoro Beltre - NNEKA/nima/moni doc#: [id number]/job#: [id number] dd: 12/30/2022 12:54:00 dt: 12/30/2022 13:26:00 DICTATING MD/COPIES TO: Tarah Morelos MD COPIES MNE: MELISSA;
[2022-12-30 14:28] VITALS: BP 123/58; PULSE 74
[2022-12-30] MEDS: LOSARTAN 50 MG TABLET PO (14:28)
--- NOTE | 2022-12-30 15:51 | PC.NURSE ---
Pt is A&OX4, VSS, afebrile on RA. He is agreeable to plan for stress test today. He is independent in the room and denies any palpitations this a.m., dizziness, SOB or chest pain. He tolerates the stress test well, and is cleared for discharge this afternoon. 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 He is escorted by RN to emergency room exit where he had parked and discharged at approximately 1530 with all of his belongings.
== END 2022-12-30 15:30 | disposition home or self-care (01) ==
LOC: ED 18:54 → AC 22:09
PROVIDERS: Internal Medicine; Admitting Provider Student in an Organized Health Care Education/Training Program; Emergency Provider Emergency Medicine; PCP Internal Medicine; Referring Provider Emergency Medicine; Visit Provider Student in an Organized Health Care Education/Training Program
DX: R07.9 Chest pain, unspecified (principal); I16.0 Hypertensive urgency; I10 Essential (primary) hypertension; I25.10 Atherosclerotic heart disease of native coronary artery without angina pectoris; E78.5 Hyperlipidemia, unspecified; N40.0 Benign prostatic hyperplasia without lower urinary tract symptoms
CPT/HCPCS: 36415; 71045; 78452; 80048; 80053; 80061; 82550; 83036; 83690; 83735; 83880; 84443; 84484; 85025; 85610; 85730; 93005; 93010; 93017; 93306; 96372; 99284; G0378; A9502; J1650

== ENCOUNTER 2023-05-27 13:16 | Emergency (ER) | payer OTHER, SELFPAY ==
[2022-12-28 23:03] VITALS: BMI 27.0
[2023-05-27 13:47] VITALS: BP 126/62; PULSE 62; RESP 20; TEMP 36.1; O2SAT 98; BMI 26.5
--- NOTE | 2023-05-27 13:53 | DI.RAD.S_ITS ---
PROCEDURE: XR CHEST 1V INDICATIONS: chest pain TECHNIQUE: One view of the chest was acquired. COMPARISON: [facility], CR, XR CHEST 1V, 12/28/2022, 19:00. FINDINGS: Surgical changes and devices: None. Lungs and pleura: Lungs are clear. No pleural effusions or pneumothorax. Mediastinum: Mediastinal contours appear normal. Heart size is normal. Bones and chest wall: No suspicious bony lesions. Overlying soft tissues appear unremarkable. IMPRESSION: Portable chest within normal limits for age. Dictated by: Krista Reeder M.D. on 05/27/2023 at 17:25 Approved by: Krista Reeder M.D. on 05/27/2023 at 17:25
[2023-05-27 15:24] LABS: Prothrombin Time 11.5 SECONDS (10.1-12.7)
[2023-05-27 15:26] LABS: PTT Partial Thromboplastin Tim 30 SECONDS (26-36)
[2023-05-27 15:30] LABS: Alanine Aminotransferase 25 IU/L (<50); Albumin 3.9 g/dL (3.5-5.0); Albumin Globulin Ratio 1.3 (1.0-2.8); Alkaline Phosphatase 69 U/L (38-126); Aspartate Aminotransferase 35 IU/L (17-59); BUN Creatinine Ratio 30.5 (6-22); Bilirubin Total 1.2 mg/dL (0.2-1.3); Blood Urea Nitrogen 29 mg/dL (9-20); Calcium 9.3 mg/dL (8.4-10.2); Carbon Dioxide 31 mmol/L (22-32); Chloride 102 mmol/L (98-107); Creatine Kinase 401 U/L (55-170); Estimated Glomerular Filt Rate > 60 mL/min (>60); Glucose 114 mg/dL (80-110); HEMOLYSIS 19 (0-50); Lipase 83 U/L (23-300); Magnesium 2.1 mg/dL (1.6-2.3); Potassium 4.1 mmol/L (3.4-5.1); Sodium 136 mmol/L (137-145); Total Protein 6.9 g/dL (6.3-8.2)
[2023-05-27 15:39] LABS: Add Manual Diff / Slide Review NO; Basophils Absolute Auto 0 /uL (0-100); Basophils Percent Auto 0.6 % (0-2); Eosinophils Absolute Auto 100 /uL (0-450); Eosinophils Percent Auto 2.4 % (2-4); Hematocrit 39.3 % (41-53); Hemoglobin 13.2 g/dL (13.5-17.5); Lymphocytes Absolute Auto 1100 /uL (1100-4500); Lymphocytes Percent Auto 18.6 % (25-40); Mean Corpuscular HGB Conc 33.5 % (30-36); Mean Corpuscular Hemoglobin 29.8 PG (26-34); Monocytes Absolute Auto 800 /uL (0-900); Monocytes Percent Auto 13.6 % (3-14); Neutrophils Absolute Auto 3700 /uL (1500-7000); Neutrophils Percent Auto 64.8 % (50-75); Platelet Count 152 X10^3/uL (150-400); Red Blood Cell Count 4.41 X10^6/uL (4.5-5.9); Red Cell Distribution Width 14.1 % (11.6-14.8); White Blood Cell Count 5.7 X10^3/uL (4.5-11.0)
[2023-05-27 15:42] LABS: Troponin I < 0.012 ng/mL (0.01-0.034)
--- NOTE | 2023-05-27 15:57 | PC.NURSE ---
Patient reports couple episodes of palpitations in the last couple weeks. Reports during excertion patient will feel his heart slow down and pound in his chest. Reports near syncope and sweating. Resolves after couple minutes of rest. Patient states he had a similar episode in the past, eliminated caffeine and has been doing better. Patient states he continues to take some thing for blood pressure but since cutting back on coffee has noted an improvement.
[2023-05-27 16:00] VITALS: BP 137/69; PULSE 58; RESP 23; O2SAT 98
[2023-05-27 16:30] VITALS: PULSE 56; RESP 16; O2SAT 97
[2023-05-27 16:31] VITALS: BP 149/95; PULSE 57; RESP 13; O2SAT 98
--- NOTE | 2023-05-27 16:45 | ED_ITS ---
HPI - General Adult General Chief complaint: Dizziness Stated complaint: heart issues Time Seen by Provider: 05/27/23 15:24 Source: patient Mode of arrival: Ambulatory History of Present Illness HPI narrative: 87-year-old male with history of hypertension presents by private vehicle from home for the sensation of a strong palpitating heartbeat. Patient states that he has had these palpitations for over a year. He has been seen by his general maintenance engineer for this complaint, but no cause has been found. He states that it normally only happens when he is exerting himself, but today he felt like his heartbeat was pounding when he was at rest and he decided to present for evaluation. Denies chest pain, shortness of breath, nausea, other complaints at this time. Related Data Home Medications Medication Instructions Recorded Confirmed losartan 50 mg tablet 50 mg PO DAILY 12/29/22 12/29/22 metoprolol succinate 25 mg 25 mg PO DAILY 12/29/22 12/29/22 tablet,extended release 24 hr simvastatin 20 mg tablet 20 mg PO DAILY 12/29/22 12/29/22 tamsulosin 0.4 mg capsule 0.4 mg PO DAILY 12/29/22 12/29/22 Allergies Allergy/AdvReac Type Severity Reaction Status Date / Time lisinopril Allergy Verified 05/27/23 13:53 Review of Systems Review of Systems Narrative: CONSTITUTIONAL- Denies: fever, chills, fatigue HEENT- Denies: sore throat, nosebleed, vision changes RESPIRATORY- Denies: shortness of breath, cough, wheezing CARDIAC-reports: Palpitations Denies: chest pain, edema, orthopnea GI- Denies: abdominal pain, nausea, vomiting, constipation, diarrhea - Denies: frequency, dysuria, hematuria, flank pain MSK- Denies: extremity pain, extremity swelling, joint pain, joint swelling SKIN- Denies: rash, itching, burn, swelling NEUROLOGICAL- Denies: headache, numbness, weakness, dizziness PSYCHIATRIC- Denies: anxiety, depression, suicidal ideation, homicidal ideation Patient History Social History household members: spouse Smoking Status: Never smoker Smoking Status: Never smoker alcohol intake frequency: 0-2 drinks per day Substance Use Type: does not use Exam Initial Vital Signs Initial Vital Signs: Vital Signs Temperature 96.9 F L 05/27/23 13:47 Pulse Rate 62 05/27/23 13:47 Respiratory Rate 20 05/27/23 13:47 Blood Pressure 126/62 05/27/23 13:47 Pulse Oximetry 98 05/27/23 13:47 Oxygen Delivery Method Room Air 05/27/23 13:47 Const: Awake, alert, no acute distress, nontoxic appearing Eyes: PERRL, EOMI, conjunctiva normal ENT: Atraumatic, dentition normal, mucous membranes moist Cardiac: regular rate, regular rhythm RESP: unlabored, clear bilaterally, no wheezing GI: Atraumatic, soft, nontender, nondistended, no rebound, no guarding MSK: Atraumatic, full range of motion, pulses equal Skin: Warm, Dry, intact, no rashes Neuro: AO x3, CN II-XII grossly intact, moves all extremities Psych: affect normal, mood normal, not suicidal, not homicidal Course Course Course Narrative: Well-appearing patient with intermittent sensation that his heart is pounding. EKGs sinus bradycardia, PVC noted. Patient is on property assessment monitor, we will obtain cardiac workup. Patient is extremely well appearing for his age and appears much younger than his stated age of 87 years. Orders Ordered: ED Orders 05/27/23 13:53 XR chest 1V Stat EKG-12 Lead Stat 05/27/23 15:14 Complete Blood Count AUTO DIFF Stat Comprehensive Metabolic Panel Stat Lipase Stat Magnesium Stat PTT Partial Thromboplastin Ulises Stat Prothrombin Time INR Stat Troponin & CK Cardiac Panel Stat Discontinued Medications Aspirin (Aspirin 81 Mg Chew Tab) 324 mg PO NOW ONE Stop: 05/27/23 13:54 Last Admin: 05/27/23 16:43 Dose: Not Given Documented By: RLS Reevaluation(s) Reevaluation #1: Laboratory work is reviewed, no acute abnormalities identified. Patient on property assessment monitor, no significant events recorded. Patient resting comfortably in bed. Labs and imaging discussed with patient at bedside. I do not know the cause of his palpitations sensation. I called the patient's [facility]iology [facility], who stated that they will schedule the patient for a follow up appointment. ED return precautions discussed at bedside. Patient expressed understanding of the plan and is in agreement at this time. All questions answered at the time of discharge. Vital Signs Vital signs: Vital Signs - 8 hr 05/27/23 13:47 05/27/23 16:00 05/27/23 16:00 Temperature 96.9 F L Pulse Rate 62 58 L Respiratory Rate 20 23 Blood Pressure 126/62 137/69 Pulse Oximetry 98 98 Oxygen Delivery Method Room Air 05/27/23 16:30 05/27/23 16:31 05/27/23 16:31 Temperature Pulse Rate 56 L 57 L Respiratory Rate 16 13 Blood Pressure 149/95 H Pulse Oximetry 97 98 Oxygen Delivery Method 05/27/23 17:00 05/27/23 17:00 Temperature Pulse Rate 63 Respiratory Rate Blood Pressure 161/82 H Pulse Oximetry 98 Oxygen Delivery Method Medical Decision Making Differential Diagnosis Differential Diagnosis: atrial fibrillation, angina, heart failure Lab Data 05/27/23 15:14 05/27/23 15:14 Labs: Lab Results 05/27/23 Range/Units 15:14 WBC 5.7 (4.5-11.0) X10^3/uL RBC 4.41 L (4.5-5.9) X10^6/uL Hgb 13.2 L (13.5-17.5) g/dL Hct 39.3 L (41-53) % MCV 89.0 (80-100) fL MCH 29.8 (26-34) PG MCHC 33.5 (30-36) % RDW 14.1 (11.6-14.8) % Plt Count 152 (150-400) X10^3/uL Neut % (Auto) 64.8 (50-75) % Lymph % (Auto) 18.6 L (25-40) % Saline % (Auto) 13.6 (3-14) % Eos % (Auto) 2.4 (2-4) % Baso % (Auto) 0.6 (0-2) % Neut # (Auto) 3700 (1923-3541) /uL Lymph # (Auto) 1100 (0708-4613) /uL Saline # (Auto) 800 (0-900) /uL Eos # (Auto) 100 (0-450) /uL Baso # (Auto) 0 (0-100) /uL PT 11.5 (10.1-12.7) SECONDS INR 1.0 (0.9-1.3) APTT 30 (26-36) SECONDS Sodium 136 L (137-145) mmol/L Potassium 4.1 (3.4-5.1) mmol/L Chloride 102 (98-107) mmol/L Carbon Dioxide 31 (22-32) mmol/L BUN 29 H (9-20) mg/dL Creatinine 0.95 (0.66-1.25) mg/dL Estimated GFR > 60 (>60) mL/min BUN/Creatinine Ratio 30.5 H (6-22) Glucose 114 H (80-110) mg/dL Calcium 9.3 (8.4-10.2) mg/dL Magnesium 2.1 (1.6-2.3) mg/dL Total Bilirubin 1.2 (0.2-1.3) mg/dL AST 35 (17-59) IU/L ALT 25 (<50) IU/L Alkaline Phosphatase 69 (38-126) U/L Total Creatine Kinase 401 H (55-170) U/L Troponin I < 0.012 (0.01-0.034) ng/mL Total Protein 6.9 (6.3-8.2) g/dL Albumin 3.9 (3.5-5.0) g/dL Globulin 3.0 (1.7-4.1) g/dL Albumin/Globulin Ratio 1.3 (1.0-2.8) Lipase 83 (23-300) U/L Discharge Plan Departure Patient Disposition: Home Clinical Impression: Heart palpitations Instructions: Arrhythmias Activity Restrictions/Additional Instructions: CALL DR. BEGUM'S OFFICE FOR FOLLOW UP Prescriptions: No Action losartan 50 mg tablet 50 mg PO DAILY tamsulosin 0.4 mg capsule 0.4 mg PO DAILY simvastatin 20 mg tablet 20 mg PO DAILY metoprolol succinate 25 mg tablet extended release 24 hr 25 mg PO DAILY Referrals: Bharat Lawsno MD [Primary Care Provider] - Stand Alone Forms: Patient Portal/API
[2023-05-27 17:00] VITALS: BP 161/82; PULSE 63; O2SAT 98
== END 2023-05-27 17:46 | disposition home or self-care (01) ==
PROVIDERS: Emergency Provider Emergency Medicine; PCP Internal Medicine
DX: R00.2 Palpitations (principal)
CPT/HCPCS: 36415; 71045; 80053; 82550; 83690; 83735; 84484; 85025; 85610; 85730; 93005; 93010; 99283; 99284

== ENCOUNTER 2023-12-22 13:25 | Emergency (ER) | payer OTHER, SELFPAY ==
[2022-12-28 23:03] VITALS: BMI 27.0
[2023-12-22] VITALS (7 sets, daily range): BP systolic 146–178; BP diastolic 70–102; PULSE 51–56; RESP 14–16; TEMP 36.2–36.6; O2SAT 96–99; BMI 27.5
--- NOTE | 2023-12-22 13:45 | DI.RAD.S_ITS ---
PROCEDURE: XR HIP W PEL IF DONE RT 2V INDICATIONS: fall /pain TECHNIQUE: 2 views of the hip were acquired. COMPARISON: None. FINDINGS: Bones: No fractures or dislocations. No suspicious bony lesions. The visualized pelvic ring appears intact. Nonuniform joint space narrowing and osteophytic lipping of the acetabuli. Soft tissues: No suspicious soft tissue calcifications or masses. Prostate brachytherapy clips. IMPRESSION: No displaced fracture. If there remains a high clinical concern or the patient cannot bear weight, consider cross-sectional imaging to exclude an occult fracture. Dictated by: Mike Vang M.D. on 12/22/2023 at 15:12 Approved by: Mike Vang M.D. on 12/22/2023 at 15:12
--- NOTE | 2023-12-22 14:47 | DI.MRI.S_ITS ---
PROCEDURE: MR HEAD/BRAIN WO CON INDICATIONS: right leg weakness TECHNIQUE: Non-contrast axial T1 spin echo, axial T2 fast spin echo, sagittal and axial FLAIR, coronal T2 fast spin echo, axial gradient echo, axial diffusion and ADC through the brain. COMPARISON: None. FINDINGS: Image quality: Excellent. CSF spaces: Ventricles appear symmetric in size and shape. Basal cisterns are patent. No extra-axial fluid collections. Brain: No intracranial bleeds or mass effects. There is cerebral volume loss for age. There are periventricular and deep white matter chronic small vessel ischemic changes. Brainstem appears normal. Diffusion-weighted images show no acute infarct. No chronic ischemic insults. Normal intravascular flow voids are present. Skull and face: Calvarial bone marrow is normal in signal. Orbits are normal. Sinuses: Sinuses and mastoids are clear. IMPRESSION: No acute intracranial pathology. Moderate chronic small vessel ischemic disease. Dictated by: Mike Vang M.D. on 12/22/2023 at 17:30 Approved by: Mike Vang M.D. on 12/22/2023 at 17:31
--- NOTE | 2023-12-22 14:54 | DI.CT.S_ITS ---
PROCEDURE: CT ANGIO HEAD AND NECK INDICATIONS: right leg weakness TECHNIQUE: After the administration of intravenous contrast, 1 mm thick sections acquired from the aortic arch through the [place] of [place]. 3-dimensional wwkpyft-isbafvtmh-axhenapqel (MIP) and/or volume rendering reformats were acquired of the central intracranial vasculature and neck separately. For radiation dose reduction, the following was used: automated exposure control, adjustment of mA and/or kV according to patient size. COMPARISON: None. FINDINGS: Image quality: Diagnostic. HEAD CT ANGIOGRAPHY: Anterior circulation: Intracranial internal carotid arteries are normal in size and flow. The flow within the paired anterior cerebral arteries is normal and symmetric. The flow within the middle cerebral arteries is normal and symmetric. The anterior communicating artery is seen. No aneurysms are seen. Posterior circulation: Visualized portions of the vertebral arteries demonstrate normal caliber, and join to form a normal appearing basilar artery. Flow within the posterior cerebral arteries is normal and symmetric. No aneurysms are seen. NECK CT ANGIOGRAPHY: Carotid system: The great vessels demonstrate a conventional anatomy as they arise from the aortic arch. The origins of the common carotid arteries appear patent. The common carotid arteries demonstrate normal caliber and courses. Atherosclerotic plaque results in greater than 70% stenosis right proximal ICA. Left proximal ICA is widely patent The internal carotid arteries demonstrate normal calibers and courses. Posterior circulation: The origins of the vertebral arteries both appear widely patent. The more superior extracranial portions of both vertebral arteries also demonstrate normal courses and calibers. They join to form a normal appearing basilar artery. Soft tissues: Visualized neck soft tissues demonstrate no suspicious abnormalities. Bones: No suspicious bony lesions. Visualized cervical spine appears normally aligned. IMPRESSION: Calcified and noncalcified atherosclerotic plaque in the proximal right ICA results in greater than 70% stenosis utilizing NASCET criteria. Para left para Left proximal ICA is widely patent. Unremarkable intracranial CT angiogram without large vessel occlusion, aneurysm or vascular malformation Approved by: Ray Powell M.D. on 12/22/2023 at 15:29
--- NOTE | 2023-12-22 16:13 | ED_ITS ---
HPI - Fall General Chief Complaint: Fall Stated Complaint: numbness on R leg t-1, fall Time Seen by Provider: 12/22/23 14:09 Source: patient Mode of arrival: Family Vehicle History of Present Illness HPI Narrative: 88-year-old gentleman with a history of hypertension hyperlipidemia, coronary artery disease had an episode on December 16 where he was walking and from his yard and suddenly could not feel his right leg and fell to the right side. Within a few seconds the strength and feeling returned to the leg and he was able to get up and complete his tasks. He has been well since with no other symptoms. No complaints of headaches, vision changes, word-finding difficulties, any other paresthesias or weakness appreciated. He comes in to make sure that he ?has not had a stroke. He currently is on a baby aspirin, treated for both cholesterol and blood pressure. No recent chest pain, palpitations, dyspnea, orthopnea, nausea, vomiting or diarrhea he notes that he does have some chronic right hip pain and feels that his fall in the May have exacerbated this but he is concerned that he may broken his hip. Of note, he drove himself to the ER and walked in to the department without any antalgic gait or pain behaviors. Related Data Home Medications Medication Instructions Recorded Confirmed losartan 50 mg tablet 50 mg PO DAILY 12/29/22 12/29/22 metoprolol succinate 25 mg 25 mg PO DAILY 12/29/22 12/29/22 tablet,extended release 24 hr simvastatin 20 mg tablet 20 mg PO DAILY 12/29/22 12/29/22 tamsulosin 0.4 mg capsule 0.4 mg PO DAILY 12/29/22 12/29/22 Allergies Allergy/AdvReac Type Severity Reaction Status Date / Time lisinopril Allergy Verified 12/22/23 13:35 Review of Systems Review of Systems Narrative: Pertinent positive and negative findings as per HPI Patient History Medical History (Updated 12/22/23 @ 18:06 by Dawn Gastelum MD) Coronary artery disease Hyperlipidemia Hypertension Social History household members: spouse Smoking Status: Never smoker Smoking Status: Never smoker alcohol intake frequency: 0-2 drinks per day Substance Use Type: does not use Exam Initial Vital Signs Initial Vital Signs: Vital Signs Temperature 97.2 F L 12/22/23 13:29 Pulse Rate 52 L 12/22/23 13:29 Respiratory Rate 14 12/22/23 13:29 Blood Pressure 178/77 H 12/22/23 13:29 Pulse Oximetry 96 12/22/23 13:29 Oxygen Delivery Method Room Air 12/22/23 13:29 General: Healthy appearing, in no acute distress. Able to give a complete and coherent history. Well-nourished well-developed HEENT: Moist mucous membranes, normal sclera with reactive pupils, Neck: No JVD, supple Respiratory: Lungs are clear to auscultation, no wheezing no rales no rhonchi. Full and symmetrical air movement Cardiac: Regular rate and rhythm no murmurs no bruits Abdomen: Soft, nontender, good bowel tones, no flank pain Skin: Warm and dry, no rashes Neurologic: Grossly neurologically intact with no obvious asymmetries or abnormalities. NIH = 0 Extremities: No trauma, no contusions, no tenderness with rotation of the right hip or with pelvic ring compression Psych: Cooperative, appropriate insight and affect Course Orders Ordered: ED Orders 12/22/23 13:45 XR hip w pel if done RT 2V Stat 12/22/23 14:47 MR head/brain wo con Stat 12/22/23 14:54 CT angio head and neck Stat Vital Signs Vital signs: Vital Signs - 8 hr 12/22/23 13:29 12/22/23 15:52 12/22/23 15:53 Temperature 97.2 F L Pulse Rate 52 L 56 L 56 L Respiratory Rate 14 Blood Pressure 178/77 H Pulse Oximetry 96 98 98 Oxygen Delivery Method Room Air 12/22/23 15:53 12/22/23 16:00 12/22/23 16:00 Temperature Pulse Rate 55 L Respiratory Rate Blood Pressure 146/102 H 151/93 H Pulse Oximetry 99 Oxygen Delivery Method 12/22/23 16:30 12/22/23 16:31 12/22/23 16:31 Temperature Pulse Rate 53 L 52 L Respiratory Rate Blood Pressure 173/70 H Pulse Oximetry 98 97 Oxygen Delivery Method MDM - Fall Imaging Data Angiogram head and neck: Radiologist's Impression: PROCEDURE: CT ANGIO HEAD AND NECK INDICATIONS: right leg weakness TECHNIQUE: After the administration of intravenous contrast, 1 mm thick sections acquired from the aortic arch through the [place] of [place]. 3-dimensional pzdacwv-dowiaaikp-tvmgychdgy (MIP) and/or volume rendering reformats were acquired of the central intracranial vasculature and neck separately. For radiation dose reduction, the following was used: automated exposure control, adjustment of mA and/or kV according to patient size. COMPARISON: None. FINDINGS: Image quality: Diagnostic. HEAD CT ANGIOGRAPHY: Anterior circulation: Intracranial internal carotid arteries are normal in size and flow. The flow within the paired anterior cerebral arteries is normal and symmetric. The flow within the middle cerebral arteries is normal and symmetric. The anterior communicating artery is seen. No aneurysms are seen. Posterior circulation: Visualized portions of the vertebral arteries demonstrate normal caliber, and join to form a normal appearing basilar artery. Flow within the posterior cerebral arteries is normal and symmetric. No aneurysms are seen. NECK CT ANGIOGRAPHY: Carotid system: The great vessels demonstrate a conventional anatomy as they arise from the aortic arch. The origins of the common carotid arteries appear patent. The common carotid arteries demonstrate normal caliber and courses. Atherosclerotic plaque results in greater than 70% stenosis right proximal ICA. Left proximal ICA is widely patent The internal carotid arteries demonstrate normal calibers and courses. Posterior circulation: The origins of the vertebral arteries both appear widely patent. The more superior extracranial portions of both vertebral arteries also demonstrate normal courses and calibers. They join to form a normal appearing basilar artery. Soft tissues: Visualized neck soft tissues demonstrate no suspicious abnormalities. Bones: No suspicious bony lesions. Visualized cervical spine appears normally aligned. IMPRESSION: Calcified and noncalcified atherosclerotic plaque in the proximal right ICA results in greater than 70% stenosis utilizing NASCET criteria. Para left para Left proximal ICA is widely patent. Unremarkable intracranial CT angiogram without large vessel occlusion, aneurysm or vascular malformation Approved by: Ray Powell M.D. on 12/22/2023 at 15:29 Brain MRI: Radiologist's Impression: PROCEDURE: MR HEAD/BRAIN WO CON INDICATIONS: right leg weakness TECHNIQUE: Non-contrast axial T1 spin echo, axial T2 fast spin echo, sagittal and axial FLAIR, coronal T2 fast spin echo, axial gradient echo, axial diffusion and ADC through the brain. COMPARISON: None. FINDINGS: Image quality: Excellent. CSF spaces: Ventricles appear symmetric in size and shape. Basal cisterns are patent. No extra-axial fluid collections. Brain: No intracranial bleeds or mass effects. There is cerebral volume loss for age. There are periventricular and deep white matter chronic small vessel ischemic changes. Brainstem appears normal. Diffusion-weighted images show no acute infarct. No chronic ischemic insults. Normal intravascular flow voids are present. Skull and face: Calvarial bone marrow is normal in signal. Orbits are normal. Sinuses: Sinuses and mastoids are clear. IMPRESSION: No acute intracranial pathology. Moderate chronic small vessel ischemic disease. Dictated by: Mike Vang M.D. on 12/22/2023 at 17:30 MDM Narrative Medical decision making narrative: CC: Very brief episode of right leg paralysis and numbness. Now resolved. Complicating co-morbidities: Hypertension, hyperlipidemia, coronary artery disease Data collected from: patient Medical records reviewed: Hospital admission and discharge for chest pain December 30, 2022 Differential considered: Stroke, TIA, pinched nerve, miss remembered incident, mechanical fall Exam documented above, pertinent findings include: Exam is unremarkable. Neurologic exam is entirely nonfocal NIH=0 Lab Test results independently reviewed as above. Pertinent findings: Hip x-ray is unremarkable, no fractures appreciated Imaging studies independently reviewed: Hip x-ray does not show any abnormality CT angiogram of the head and neck does not show any acute rate limiting lesions Brain MRI does not suggest acute stroke or mass effect Discussion: 88-year-old gentleman concerned that he had a brief episode of his right leg completely giving out on him with no strength and no sensation. The episode has not recurred. Workup today does not suggest that he has had acute stroke. As he has been symptom-free for at least 4 days are not going to suggest any additional workup regarding the leg. There was no evidence of fract ure any is able to walk with minimal difficulty. He is currently treated for all stroke factors with blood pressure treatment, a statin and is on baby aspirin. No evidence of acute issues and I believe he is safe for discharge. Questions are answered Discharge Plan Departure Patient Disposition: Home Clinical Impression: Acute pain of right hip, Transient right leg weakness Activity Restrictions/Additional Instructions: Thank you for coming in today You stated that 4 days ago you lost sensation and strength in your right leg and ended up falling on your right side with some hip pain. You also said that you have had chronic right hip pain. As part of your workup in the emergency department I was concerned about a stroke or a TIA as the reason for the complete loss of sensation in the right leg. Fortunately, the CT angiogram of your head and neck as well as the MRI of your brain do not suggest an acute stroke or any rate limiting lesions in any of the blood vessels. 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 If you find that you have new or worsening symptoms please feel free to return to the emergency department. In the meantime, please do follow up with your primary care physician about your right hip pain. Sometimes it is simply arthritis, sometimes it is pain radiating from the back and sometimes knee pain can also exacerbate hip pain. Prescriptions: No Action losartan 50 mg tablet 50 mg PO DAILY tamsulosin 0.4 mg capsule 0.4 mg PO DAILY simvastatin 20 mg tablet 20 mg PO DAILY metoprolol succinate 25 mg tablet extended release 24 hr 25 mg PO DAILY Referrals: Bharat Lawson MD [Primary Care Provider] - Stand Alone Forms: Patient Portal/API
== END 2023-12-22 18:23 | disposition home or self-care (01) ==
PROVIDERS: Emergency Provider Emergency Medicine; PCP Internal Medicine
DX: R53.1 Weakness (principal); R20.0 Anesthesia of skin; M25.551 Pain in right hip
CPT/HCPCS: 36415; 70496; 70498; 70551; 73502; 99284; Q9967

== ENCOUNTER 2024-01-12 08:36 | Emergency (ER) | payer OTHER, SELFPAY ==
[2022-12-28 23:03] VITALS: BMI 27.0
--- NOTE | 2024-01-12 08:43 | DI.US.S_ITS ---
PROCEDURE: US SCROTUM INDICATIONS: left testicle pain TECHNIQUE: Real-time scanning was performed of the scrotum and testicles, with image documentation. Color and pulse Doppler interrogation was performed of both testicles. COMPARISON: None. FINDINGS: Right: Testicle is normal in size at 2.9 x 1.6 x 1 point cm, and homogenous in echotexture. Epididymis is normal in overall size and morphology. Small hydrocele. No varicoceles. Overlying scrotal skin is normal in thickness. Left: Testicle is normal in size at 3.1 x 1.5 x 2.1 cm, and homogeneous in echotexture. A small 0.4 cm cyst is seen near the rete testis. Epididymis is normal in overall size and morphology. No hydrocele or varicoceles. Overlying scrotal skin is normal in thickness. Doppler: Color and pulse Doppler demonstrate normal and symmetric arterial flow in both testicles. IMPRESSION: No signs of testicular torsion or epididymitis. Small right hydrocele. Approved by: Esau Pacheco M.D. on 01/12/2024 at 9:42
[2024-01-12 08:44] VITALS: BP 148/65; PULSE 55; RESP 18; TEMP 36.6; O2SAT 95; BMI 29.4
--- NOTE | 2024-01-12 09:42 | ED.MALEGU ---
HPI - Male Genitourinary General Chief complaint: Urogenital-Male Stated complaint: Painful testical problem Time Seen by Provider: 01/12/24 09:15 Source: patient, RN notes reviewed and old records reviewed Mode of arrival: Ambulatory Limitations: no limitations History of Present Illness HPI Narrative: 88-year-old male history of coronary artery disease with prior stent, hypertension, dyslipidemia on aspirin daily who presents with complaint of left testicular pain for the past 5 days. Patient states it is only when he goes to sit down. He states feels like he sat on his testicle even if he has not. He states when he seated it has not painful when he is walking he does not have any pain only in that particular situation. He has not appreciate any redness, swelling or other changes. States pain runs up a little bit into the inguinal area. He states no back or flank pain. No other abdominal pain. Denies any fevers or chills. No nausea or vomiting. No recent injury or trauma. Has not had similar symptoms in the past. Patient denies any issues with bowel movements. No dysuria, urgency frequency or hematuria. He defers anything for pain. He presents today as it has been 5 days and not resolving. Patient states only prior surgeries or cardiac stent. Has not allergy to lisinopril. He states former smoker, occasional alcohol, no recreational drugs. Related Data Home Medications Medication Instructions Recorded Confirmed losartan 50 mg tablet 50 mg PO DAILY 12/29/22 12/29/22 metoprolol succinate 25 mg 25 mg PO DAILY 12/29/22 12/29/22 tablet,extended release 24 hr simvastatin 20 mg tablet 20 mg PO DAILY 12/29/22 12/29/22 tamsulosin 0.4 mg capsule 0.4 mg PO DAILY 12/29/22 12/29/22 Allergies Allergy/AdvReac Type Severity Reaction Status Date / Time lisinopril Allergy ITCHING Verified 01/12/24 08:47 Review of Systems Review of Systems ROS Unobtainable: All systems reviewed & are unremarkable except as noted in HPI and below Patient History Medical History Coronary artery disease Hyperlipidemia Hypertension Social History household members: spouse Smoking Status: Former smoker Smoking Status: Former smoker alcohol intake frequency: 0-2 drinks per day Substance Use Type: does not use Exam Narrative Exam Narrative: GENERAL: Alert and oriented x three, male in mild distress. HEENT: Head normocephalic, atraumatic, EOMI, pupils reactive, face symmetric, moist mucous membranes NECK: Supple, full range of motion CARDIOVASCULAR: Regular rate and rhythm without murmurs, rubs or gallops. RESPIRATORY: Breath sounds equal bilaterally, no wheezes rales or rhonchi. ABDOMEN: Soft, nontender. Normoactive bowel sounds all 4 quadrants. No guarding or rebound, rigidity, no mass : No CVA tenderness. Male: normal external examination, no penile discharge or lesions, testicles non-tender, cremasteric reflex intact, no inguinal hernias noted. EXTREMITIES: Normal range of motion, no clubbing or edema. Neurovascularly intact NEUROLOGICAL: Cranial nerves II through XII grossly intact. Moving all extremities SKIN: Warm, dry, no petechiae, no rashes or lesions. Initial Vital Signs Initial Vital Signs: Vital Signs Temperature 98 F 01/12/24 08:44 Pulse Rate 55 L 01/12/24 08:44 Respiratory Rate 18 01/12/24 08:44 Blood Pressure 148/65 H 01/12/24 08:44 Pulse Oximetry 95 01/12/24 08:44 Oxygen Delivery Method Room Air 01/12/24 08:44 Course Orders Ordered: ED Orders 01/12/24 08:43 US scrotum Stat Vital Signs Vital signs: Vital Signs - 8 hr 01/12/24 10:21 Pulse Rate 60 Blood Pressure 166/72 H Pulse Oximetry 97 Oxygen Delivery Method Room Air MDM - Male Genitourinary Lab Data Labs: Urine Dip Bedside Urine Glucose Negative Bedside Urine Bilirubin - Negative Bedside Urine Ketone - Negative Urine Specific [place] 1.020 Bedside Urine Occult Blood - Negative Bedside Urine pH 6.5 Bedside Urine Protein - Negative Bedside Urine Urobilinogen - Negative Bedside Urine Nitrite - Negative Bedside Urine Leukocytes - Negative Esterase Imaging Data scrotum US: Radiologist's Impression: Porter Beltre??88??M??1935 ? Allergy/Adv: lisinopril Close Scrotum Ultrasound (Signed) Esau Pacheco - 01/12/24 Head/Neck CTA (Signed) Ray Powell - 12/22/23 Brain MRI (Signed) Mike Vang - 12/22/23 Hip X-Ray (Signed) Mike Vang - 12/22/23 Chest X-Ray (Signed) Krista Reeder - 05/27/23 Radiology Report (Cancelled) Tarah Morelos - 12/30/22 Myocardial Perfusion Scan Nuc Med (Signed) Maia Morelosu - 12/30/22 Echocardiogram Ultrasound (Signed) Jovon Diaz - 12/28/22 Telemetry Strips 12/28/22 Chest X-Ray (Signed) LaytonEsau horton - 12/28/22 Chest/Abdomen X-ray (Signed) Call,Landry - 08/12/20 Abdomen/Pelvis CT (Signed) Call,Landry - 08/11/20 [place] [address] Ultrasound Report Signed Patient: Porter Beltre MR#: [id number] : 1935 Acct:[id number] Age/Sex: 88 / M Date of Service: 01/12/24 Loc: ED Accession Number: [id number] Procedure: US scrotum Ordering Provider: Dolly Prais D.O. PROCEDURE: US SCROTUM INDICATIONS: left testicle pain TECHNIQUE: Real-time scanning was performed of the scrotum and testicles, with image documentation. Color and pulse Doppler interrogation was performed of both testicles. COMPARISON: None. FINDINGS: Right: Testicle is normal in size at 2.9 x 1.6 x 1 point cm, and homogenous in echotexture. Epididymis is normal in overall size and morphology. Small hydrocele. No varicoceles. Overlying scrotal skin is normal in thickness. Left: Testicle is normal in size at 3.1 x 1.5 x 2.1 cm, and homogeneous in echotexture. A small 0.4 cm cyst is seen near the rete testis. Epididymis is normal in overall size and morphology. No hydrocele or varicoceles. Overlying scrotal skin is normal in thickness. Doppler: Color and pulse Doppler demonstrate normal and symmetric arterial flow in both testicles. IMPRESSION: No signs of testicular torsion or epididymitis. Small right hydrocele. Approved by: Esau Pacheco M.D. on 01/12/2024 at 9:42 MDM Narrative Medical decision making narrative: 88-year-old male with 5 days of testicular discomfort but only when sitting down. When he is seated for a longer period time he has not having pain when he is up and walking he does not have pain. Patient's urine does not show any acute changes. Exam does not show any clear signs of infection. Patient had ul shows no sign of torsion or epididymis small right hydrocele overlying skin is normal thickness. No other changes appreciated. We will give patient follow up for Urology if symptoms are persisting. Return precautions. Examination no obvious redness or skin changes consistent with a cellulitis. Discharge Plan Departure Patient Disposition: Home Clinical Impression: Left testicular pain Instructions: DI for Testicular Pain Activity Restrictions/Additional Instructions: Follow up for recheck, if your symptoms are persisting contact information is included below to follow up with Urology. Please call to set up an appointment. Your imaging and urine today do not show any obvious signs of infection, torsion or changes to the testicle on the left. You do have a small right hydrocele but these do not typically cause pain or problems. You can take Tylenol up to a 1000 mg every 6 hours as needed for pain. Please return if you are having new redness, swelling, rapidly worsening pain, difficulty with urination, new abdominal back or flank pain, fevers, vomiting or other new or concerning changes. Prescriptions: No Action losartan 50 mg tablet 50 mg PO DAILY tamsulosin 0.4 mg capsule 0.4 mg PO DAILY simvastatin 20 mg tablet 20 mg PO DAILY metoprolol succinate 25 mg tablet extended release 24 hr 25 mg PO DAILY Referrals: Wilian Blank MD [Physician] - Bharat Lawson MD [Primary Care Provider] - Stand Alone Forms: Patient Portal/API
[2024-01-12 10:21] VITALS: BP 166/72; PULSE 60; O2SAT 97
== END 2024-01-12 10:21 | disposition home or self-care (01) ==
PROVIDERS: Emergency Provider Emergency Medicine; PCP Internal Medicine
DX: N50.812 Left testicular pain (principal)
CPT/HCPCS: 76870; 81003; 99281; 99282

== ENCOUNTER → 2024-03-08 14:43 | Outpatient (CLI) | payer OTHER, SELFPAY ==
[2022-12-28 23:03] VITALS: BMI 27.0
--- NOTE | 2024-03-08 14:44 | DI.US.S_ITS ---
PROCEDURE: US ABDOMEN LIMITED INDICATIONS: LEFT GROIN PAIN / RULE OUT HERNIA TECHNIQUE: Real-time focused scanning was performed of the inguinal region, with image documentation. COMPARISON: None. FINDINGS: No left inguinal hernia. Normal appearing lymph nodes measuring less than a cm in short axis. IMPRESSION: No left inguinal hernia. Dictated by: Peter Snyder M.D. on 03/09/2024 at 15:18 Approved by: Peter Snyder M.D. on 03/09/2024 at 15:18
== END ==
LOC: US 14:43
PROVIDERS: PCP Internal Medicine; Referring Provider Internal Medicine; Visit Provider Internal Medicine
DX: R10.32 Left lower quadrant pain (principal)
CPT/HCPCS: 76705

== ENCOUNTER 2024-03-18 06:53 | Emergency (ER) | payer OTHER, SELFPAY ==
[2022-12-28 23:03] VITALS: BMI 27.0
[2024-03-18] VITALS (11 sets, daily range): BP systolic 143–166; BP diastolic 64–71; PULSE 49–62; RESP 10–24; TEMP 36.8–37.3; O2SAT 96–98; BMI 28.0
--- NOTE | 2024-03-18 07:02 | ED_ITS ---
HPI - Abdominal Pain General Chief Complaint: Abdominal Pain Stated Complaint: abd pain , constipated x 1week Time Seen by Provider: 03/18/24 07:00 History of Present Illness HPI narrative: 88-year-old male complains of ongoing pain left groin and hip area, with pain radiating to the left scrotum, at least since January 2024, recalls ER visit prior ultrasound scrotum negative, more recently has had outpatient clinic order left hip x-ray and outpatient abdominal ultrasound, negative for hernia. He does not recall CT abdomen and pelvis scanning since this time. He says that he has not had a bowel movement for the last few days, despite use of oral laxatives, and glycerin suppository, last suppository was last night. No problems urinating. No injury trauma new activities. No change in medications. No black or red stools. No change in caliber stools. He has some low abdominal discomfort last couple of days. He denies flank pain, frequency of urination, blood in or darkening of his urine. Related Data Home Medications Medication Instructions Recorded Confirmed losartan 50 mg tablet 50 mg PO DAILY 12/29/22 12/29/22 metoprolol succinate 25 mg 25 mg PO DAILY 12/29/22 12/29/22 tablet,extended release 24 hr simvastatin 20 mg tablet 20 mg PO DAILY 12/29/22 12/29/22 tamsulosin 0.4 mg capsule 0.4 mg PO DAILY 12/29/22 12/29/22 Previous Rx's Medication Instructions Recorded lactulose 20 gram/30 mL oral 20 g (30 mL) PO BID #600 mL 03/18/24 solution Allergies Allergy/AdvReac Type Severity Reaction Status Date / Time lisinopril Allergy ITCHING Verified 01/12/24 08:47 Review of Systems Review of Systems Narrative: see HPI Patient History Medical History Coronary artery disease Hyperlipidemia Hypertension Social History household members: spouse Smoking Status: Former smoker Smoking Status: Former smoker alcohol intake frequency: 0-2 drinks per day Substance Use Type: does not use Exam Narrative Exam Narrative: GENERAL: Well-developed patient, in mild distress. HEAD: Atraumatic. Normocephalic. EYES: Pupils equal round and reactive. Extraocular motions intact. No scleral icterus. No injection or drainage. ENT: Nose without bleeding, purulent drainage. Throat without erythema, tonsillar hypertrophy or exudate. Airway patent. NECK: Trachea midline. Non tender CARDIOVASCULAR: Regular rate and rhythm without murmurs, gallops, or rubs. RESPIRATORY: Clear to auscultation. Breath sounds equal bilaterally. No wheezes, rales, or rhonchi. GASTROINTESTINAL: Abdomen soft, non-tender, nondistended. Genitourinary: Circumcised male genitalia, no phallus or meatal lesions, no meatal discharge. No tenderness to either testis or epididymis. No obvious inguinal hernia with Valsalva left or right side. Scrotum not symmetrically or asymmetrically enlarged EXTREMITIES: No edema or joint tenderness. BACK: Nontender without deformity or crepitance. No flank tenderness. NEURO: AOx3. Grossly nonfocal neuro exam SKIN: No rash or erythema of visible areas Initial Vital Signs Initial Vital Signs: Vital Signs Temperature 98.3 F 03/18/24 07:00 Pulse Rate 62 03/18/24 07:00 Respiratory Rate 16 03/18/24 07:00 Blood Pressure 166/69 H 03/18/24 07:00 Pulse Oximetry 98 03/18/24 07:00 Oxygen Delivery Method Room Air 03/18/24 07:00 Course Orders Ordered: Discontinued Medications Sodium Chloride (Normal Saline 0.9%) 1,000 mls @ 500 mls/hr IV BOLUS ONE Stop: 03/18/24 10:11 Last Infusion: 03/18/24 10:05 Dose: 0 mls/hr Documented By: Admin: 03/18/24 09:06 Dose: 500 mls/hr Documented By: MC Lactulose (Lactulose 20 Gm/30 Ml Solution) 20 gm PO NOW ONE Stop: 03/18/24 09:28 Last Admin: 03/18/24 09:38 Dose: 20 gm Documented By: MC Sodium Biphosphate/Sodium Phosphate (Fleets Enema) 1 each UT NOW ONE Stop: 03/18/24 09:28 Last Admin: 03/18/24 09:38 Dose: 1 each Documented By: MC Vital Signs Vital signs: Vital Signs - 8 hr 03/18/24 07:00 03/18/24 07:22 03/18/24 07:24 Temperature 98.3 F Pulse Rate 62 54 L 54 L Respiratory Rate 16 16 Blood Pressure 166/69 H Pulse Oximetry 98 97 Oxygen Delivery Method Room Air 03/18/24 07:24 03/18/24 07:30 03/18/24 07:30 Temperature 99.1 F Pulse Rate 58 L Respiratory Rate 24 Blood Pressure 159/71 H 143/64 H Pulse Oximetry 98 Oxygen Delivery Method 03/18/24 08:00 03/18/24 08:01 03/18/24 08:01 Temperature Pulse Rate 57 L 53 L Respiratory Rate 12 Blood Pressure 154/69 H Pulse Oximetry 97 97 Oxygen Delivery Method 03/18/24 08:30 03/18/24 08:30 03/18/24 08:44 Temperature Pulse Rate 49 L Respiratory Rate 10 L Blood Pressure 153/67 H 146/65 H Pulse Oximetry 96 Oxygen Delivery Method 03/18/24 08:44 03/18/24 09:00 03/18/24 09:01 Temperature Pulse Rate 60 57 L 57 L Respiratory Rate 12 17 15 Blood Pressure Pulse Oximetry 97 96 96 Oxygen Delivery Method 03/18/24 09:01 Temperature Pulse Rate Respiratory Rate Blood Pressure 154/70 H Pulse Oximetry Oxygen Delivery Method MDM - Abdominal Pain Lab Data Attestation: I reviewed the patient's lab results. Lab results narrative: WBC, Hb normal, CMP unremarkable, urine dip neg 03/18/24 07:35 03/18/24 07:35 Labs: Lab Results 03/18/24 Range/Units 07:35 WBC 6.6 (4.5-11.0) X10^3/uL RBC 4.23 L (4.5-5.9) X10^6/uL Hgb 13.1 L (13.5-17.5) g/dL Hct 38.5 L (41-53) % MCV 91.1 (80-100) fL MCH 30.9 (26-34) PG MCHC 33.9 (30-36) % RDW 13.8 (11.6-14.8) % Plt Count 166 (150-400) X10^3/uL Neut % (Auto) 66.3 (50-75) % Lymph % (Auto) 15.6 L (25-40) % [place] % (Auto) 14.9 H (3-14) % Eos % (Auto) 2.5 (2-4) % Baso % (Auto) 0.7 (0-2) % Neut # (Auto) 4400 (5214-4002) /uL Lymph # (Auto) 1000 L (3421-0097) /uL [place] # (Auto) 1000 H (0-900) /uL Eos # (Auto) 200 (0-450) /uL Baso # (Auto) 0 (0-100) /uL Sodium 136 L (137-145) mmol/L Potassium 4.4 (3.4-5.1) mmol/L Chloride 106 (98-107) mmol/L Carbon Dioxide 24 (22-32) mmol/L BUN 23 H (9-20) mg/dL Creatinine 0.99 (0.66-1.25) mg/dL Estimated GFR > 60 (>60) mL/min BUN/Creatinine Ratio 23.2 H (6-22) Glucose 113 H (80-110) mg/dL Lactate 0.8 (0.7-2.1) mmol/L Calcium 9.0 (8.4-10.2) mg/dL Total Bilirubin 2.0 H (0.2-1.3) mg/dL AST 35 (17-59) IU/L ALT 24 (<50) IU/L Alkaline Phosphatase 66 (38-126) U/L Ammonia < 9 L (9-30) umol/L Total Protein 6.5 (6.3-8.2) g/dL Albumin 3.9 (3.5-5.0) g/dL Globulin 2.6 (1.7-4.1) g/dL Albumin/Globulin Ratio 1.5 (1.0-2.8) Lipase 62 (23-300) U/L Point of care testing: Urine Dip Bedside Urine Glucose Negative Bedside Urine Bilirubin - Negative Bedside Urine Ketone - Negative Urine Specific [place] 1.015 Bedside Urine Occult Blood - Negative Bedside Urine pH 6.0 Bedside Urine Protein - Negative Bedside Urine Urobilinogen +/- 1mg Bedside Urine Nitrite - Negative Bedside Urine Leukocytes - Negative Esterase Imaging Data CT scan - abdomen/pelvis: Radiologist's Impression: [address] [address] [address] Scan Report Signed Patient: Porter Beltre [place] MR#: [id number] : 1935 Acct:[id number] Age/Sex: 88 / M Date of Service: 03/18/24 Loc: ED Accession Number: [id number] Procedure: CT abdomen pelvis w con Ordering Provider: Gagandeep Velazquez MD PROCEDURE: CT ABDOMEN PELVIS W CON INDICATIONS: left groin pain, LLQ pain TECHNIQUE: After the administration of intravenous contrast, axial sections acquired from the lung bases to the pubic symphysis. Coronal and sagittal reformats were performed. For radiation dose reduction, the following was used: automated exposure control, adjustment of mA and/or kV according to patient size. COMPARISON: [facility], CT, CT ABDOMEN PELVIS W CON, 08/11/2020, 1:11. FINDINGS: Image quality: Diagnostic. Lower Chest: No significant findings. ABDOMEN: Liver: No solid mass. Gallbladder: No radiopaque gallstones or wall thickening. Biliary ducts: No biliary dilation. Pancreas: No ductal dilation. Spleen: Size is within normal limits. Adrenal Glands: No adrenal nodules. Kidneys and Ureters: No hydronephrosis. No solid mass. No complex renal cystic lesion which requires follow up. Stomach and Bowel: Normal colonic caliber, without significant wall thickening. Peritoneum: Minimal trace pelvic fluid. No free air. Ventral Wall: No significant ventral hernia. Abdominal Nodes: No retroperitoneal or mesenteric adenopathy by size criteria. Vessels: Aorta and inferior vena cava are normal in size. PELVIS: Pelvic Organs: Prostate implant seeds. Bladder: No bladder wall thickening, accounting for underdistention. Pelvic Nodes: No enlarged lymph nodes. Miscellaneous: Fat containing right inguinal hernia and probable small fat containing left inguinal hernia. Bones: No aggressive osseous abnormality. Probable scattered bone islands. IMPRESSION: 1. No acute abdominal process noted. 2. Fat containing right inguinal hernia and probable small fat containing left inguinal hernia. 3. Prostate implant seeds. 4. No metastatic disease identified. 5. Trace pelvic fluid. Dictated by: Tex Garcia M.D. on 03/18/2024 at 9:07 Approved by: Tex Garcia M.D. on 03/18/2024 at 9:16 [facility] Narrative Medical decision making narrative: 88-year-old male with ongoing left inguinal and left scrotal pain, prior imaging January 2024 ultrasound scrotum negative, more recent imaging earlier this month right hip x-ray, and abdominal ultrasound not showing any hernia. Persisting pain, now with lack of bowel movement for a few days. Abdomen not distended, without tenderness, no hernia obvious on exam inguinal or ventral or scrotal. DDx consider referred pain from intermittent inguinal hernia, testicular infection or torsion seems unlikely for long duration of time and also prior negative imaging, no scrotal pain/tenderness, consider referred pain from ureteral stone, lack of bowel movement consider bowel obstruction, colitis, diverticulitis, volvulus, constipation, other. Consider CT abdominopelvic imaging, labs pending. Imaging records review. 01/12/24 scrotal US negative for acute left sided findings with good blood flow, small right hydroceole noted, no hernias. 03/07/2024 right hip XRay showed DJD changes but no acute changes. 03/29/24 Ultrasound abdomen negative for left inguinal hernia, normal-appearing lymph nodes. CT abdomen and pelvis shows bilateral fat containing inguinal hernias, no bowel obstruction or acute changes noted to clean symptoms. See radiology report. No bowel movement multiple days, no obstruction pattern, trial fleets enema and oral lactulose. Tolerated well, further Rx Lactulose at home, discharged home with family Critical Care Time Critical Care Time Critical Care Time: Yes Total Critical Care Time: 31 Attestation: The high probability of a clinically significant, sudden or life threatening deterioration of the [gastrointestinal, abdominopelvic, genitourinary] system(s) required my full and direct attention, intervention and personal management. The aggregate critical care time was [31] minutes. This time is in addition to time spent performing reported procedures but includes the following: [x] Data Review and interpretation [x] Patient assessment and monitoring of vital signs [x] Documentation [x] Medication orders and management Discharge Plan Departure Patient Disposition: Home Clinical Impression: Abdominal pain, Inguinal hernia, Constipation Instructions: DI for Abdominal Pain-Adult, DI for Constipation Activity Restrictions/Additional Instructions: Ongoing abdominal discomfort with some radiation to the left testicle at least since January, prior ultrasound scrotum negative, ultrasound abdomen last week showed no evidence left inguinal hernia at that time. Ongoing symptoms, all so no bowel movement for multiple days. CT scan abdomen and pelvis was done to make sure there is no bowel obstruction, there is no bowel obstruction pattern, though there was mention of right and left suspected inguinal hernia fat containing, that means there is some fat that goes into the inguinal canal on both sides, but no part of the bowels were visualized within the inguinal canal at this time. It is possible your left lower groin pain might be due to this fat containing inguinal hernia, and radiation to the left scrotum if the ileal inguinal nerve is irritated from that hernia. Trial of enemas and laxatives to move your bowels. Consider general surgery follow up for elective hernia repair consultation. Take enemas and laxative as directed. Return if symptoms not improving in next couple of days. Return to this/nearest emergency department for any change worsening symptoms or any concerns prior. Prescriptions: New lactulose 20 gram/30 mL solution 20 g PO BID Qty: 600 0RF No Action losartan 50 mg tablet 50 mg PO DAILY tamsulosin 0.4 mg capsule 0.4 mg PO DAILY simvastatin 20 mg tablet 20 mg PO DAILY metoprolol succinate 25 mg tablet extended release 24 hr 25 mg PO DAILY Referrals: Guzman Gomez MD [Physician] - Bharat Lawson MD [Primary Care Provider] - Stand Alone Forms: Patient Portal/API
[2024-03-18 07:49] LABS: Add Manual Diff / Slide Review NO; Basophils Absolute Auto 0 /uL (0-100); Basophils Percent Auto 0.7 % (0-2); Eosinophils Absolute Auto 200 /uL (0-450); Eosinophils Percent Auto 2.5 % (2-4); Hematocrit 38.5 % (41-53); Hemoglobin 13.1 g/dL (13.5-17.5); Lymphocytes Absolute Auto 1000 /uL (1100-4500); Lymphocytes Percent Auto 15.6 % (25-40); Mean Corpuscular HGB Conc 33.9 % (30-36); Mean Corpuscular Hemoglobin 30.9 PG (26-34); Mean Corpuscular Volume 91.1 fL (80-100); Monocytes Absolute Auto 1000 /uL (0-900); Monocytes Percent Auto 14.9 % (3-14); Neutrophils Absolute Auto 4400 /uL (1500-7000); Neutrophils Percent Auto 66.3 % (50-75); Platelet Count 166 X10^3/uL (150-400); Red Blood Cell Count 4.23 X10^6/uL (4.5-5.9); Red Cell Distribution Width 13.8 % (11.6-14.8); White Blood Cell Count 6.6 X10^3/uL (4.5-11.0)
[2024-03-18 07:59] LABS: Lactate (Lactic Acid) 0.8 mmol/L (0.7-2.1)
[2024-03-18 08:01] LABS: Alanine Aminotransferase 24 IU/L (<50); Albumin 3.9 g/dL (3.5-5.0); Albumin Globulin Ratio 1.5 (1.0-2.8); Alkaline Phosphatase 66 U/L (38-126); Ammonia (NH3) < 9 umol/L (9-30); Aspartate Aminotransferase 35 IU/L (17-59); BUN Creatinine Ratio 23.2 (6-22); Blood Urea Nitrogen 23 mg/dL (9-20); Carbon Dioxide 24 mmol/L (22-32); Chloride 106 mmol/L (98-107); Estimated Glomerular Filt Rate > 60 mL/min (>60); Globulin 2.6 g/dL (1.7-4.1); Glucose 113 mg/dL (80-110); HEMOLYSIS 49 (0-50); Lipase 62 U/L (23-300); Potassium 4.4 mmol/L (3.4-5.1); Sodium 136 mmol/L (137-145); Total Protein 6.5 g/dL (6.3-8.2)
--- NOTE | 2024-03-18 08:09 | DI.CT.S_ITS ---
PROCEDURE: CT ABDOMEN PELVIS W CON INDICATIONS: left groin pain, LLQ pain TECHNIQUE: After the administration of intravenous contrast, axial sections acquired from the lung bases to the pubic symphysis. Coronal and sagittal reformats were performed. For radiation dose reduction, the following was used: automated exposure control, adjustment of mA and/or kV according to patient size. COMPARISON: [facility], CT, CT ABDOMEN PELVIS W CON, 08/11/2020, 1:11. FINDINGS: Image quality: Diagnostic. Lower Chest: No significant findings. ABDOMEN: Liver: No solid mass. Gallbladder: No radiopaque gallstones or wall thickening. Biliary ducts: No biliary dilation. Pancreas: No ductal dilation. Spleen: Size is within normal limits. Adrenal Glands: No adrenal nodules. Kidneys and Ureters: No hydronephrosis. No solid mass. No complex renal cystic lesion which requires follow up. Stomach and Bowel: Normal colonic caliber, without significant wall thickening. Peritoneum: Minimal trace pelvic fluid. No free air. Ventral Wall: No significant ventral hernia. Abdominal Nodes: No retroperitoneal or mesenteric adenopathy by size criteria. Vessels: Aorta and inferior vena cava are normal in size. PELVIS: Pelvic Organs: Prostate implant seeds. Bladder: No bladder wall thickening, accounting for underdistention. Pelvic Nodes: No enlarged lymph nodes. Miscellaneous: Fat containing right inguinal hernia and probable small fat containing left inguinal hernia. Bones: No aggressive osseous abnormality. Probable scattered bone islands. IMPRESSION: 1. No acute abdominal process noted. 2. Fat containing right inguinal hernia and probable small fat containing left inguinal hernia. 3. Prostate implant seeds. 4. No metastatic disease identified. 5. Trace pelvic fluid. Dictated by: Tex Garcia M.D. on 03/18/2024 at 9:07 Approved by: Tex Garcia M.D. on 03/18/2024 at 9:16
[2024-03-18] MEDS: SODIUM CHLORIDE 0.9% 1,000 ML 500 ML IV (09:06)
[2024-03-18] MEDS: FLEETS ENEMA 1 EACH PR (09:38)
[2024-03-18] MEDS: LACTULOSE 20 GM/30 ML SOLUTION PO (09:38)
== END 2024-03-18 10:05 | disposition home or self-care (01) ==
PROVIDERS: Emergency Provider Emergency Medicine; PCP Internal Medicine
DX: R10.32 Left lower quadrant pain (principal); K40.90 Unilateral inguinal hernia, without obstruction or gangrene, not specified as recurrent; K59.00 Constipation, unspecified
CPT/HCPCS: 36415; 74177; 80053; 81003; 82140; 83605; 83690; 85025; 96360; 99284

== ENCOUNTER 2024-06-16 02:27 | Emergency (ER) | payer OTHER, SELFPAY ==
[2022-12-28 23:03] VITALS: BMI 27.0
[2024-06-16 02:36] VITALS: PULSE 61; O2SAT 99
--- NOTE | 2024-06-16 02:36 | DI.US.S_ITS ---
PROCEDURE: US PERIPH VENOUS LOW EXTREM LT INDICATIONS: LLE swelling x 1 wk TECHNIQUE: Real-time imaging, as well as color and pulse Doppler interrogation, were performed of the lower extremity deep veins from the inguinal ligament to the popliteal fossa, with documentation of the visualized calf veins. COMPARISON: None. FINDINGS: The common femoral, femoral, popliteal, and the visualized calf veins are normally compressible, and free of intraluminal thrombus. Color and pulse Doppler demonstrate normal phasic intraluminal flow. There is normal augmentation response to distal compression maneuver. 4.2 cm Cramer's cyst is present. IMPRESSION: No findings of lower extremity deep venous thrombosis. Agree with prelim report. Dictated by: Deep Rosado M.D. on 06/16/2024 at 7:51 Approved by: Deep Rosado M.D. on 06/16/2024 at 7:51
--- NOTE | 2024-06-16 02:37 | ED.LOWEXIN ---
HPI - Extremity Injury (Lower) General Chief Complaint: Extremity Problem,Nontraumatic Stated Complaint: left leg swelling, knee injury Time Seen by Provider: 06/16/24 02:28 History of Present Illness HPI Narrative: 88-year-old male with history of hypertension presents for 1 week of left knee pain and 2-3 days of left lower extremity swelling. Patient states that his leg feels ?heavy? from all the swelling. This morning when he got up to use the restroom he felt like his leg was heavier than it has ever been and he became worried about blood clots. Patient denies use of blood thinners. Denies history of DVT or PE. Patient denies numbness, weakness, other complaints at this time. Denies known trauma. Denies recent surgeries, immobilizations, prolonged travel times. Related Data Home Medications Medication Instructions Recorded Confirmed losartan 50 mg tablet 50 mg PO DAILY 12/29/22 12/29/22 metoprolol succinate 25 mg 25 mg PO DAILY 12/29/22 12/29/22 tablet,extended release 24 hr simvastatin 20 mg tablet 20 mg PO DAILY 12/29/22 12/29/22 tamsulosin 0.4 mg capsule 0.4 mg PO DAILY 12/29/22 12/29/22 Previous Rx's Medication Instructions Recorded lactulose 20 gram/30 mL oral 20 g (30 mL) PO BID #600 mL 03/18/24 solution Allergies Allergy/AdvReac Type Severity Reaction Status Date / Time lisinopril Allergy ITCHING Verified 01/12/24 08:47 Patient History Medical History Coronary artery disease Hyperlipidemia Hypertension Social History household members: spouse Smoking Status: Former smoker Smoking Status: Former smoker alcohol intake frequency: 0-2 drinks per day Substance Use Type: does not use Exam Initial Vital Signs Initial Vital Signs: Vital Signs Pulse Rate 61 06/16/24 02:36 Pulse Oximetry 99 06/16/24 02:36 Const: Awake, alert, no acute distress, nontoxic appearing Cardiac: regular rate, regular rhythm RESP: unlabored, clear bilaterally, no wheezing GI: Soft, nontender, nondistended, no rebound, no guarding MSK: Atraumatic, questionable trace pitting edema to knee LLE Skin: Warm, Dry, intact, no rashes Neuro: AO x3, CN II-XII grossly intact, sensation intact/equal bilaterally, strength 5/5 bilaterally Course Orders Ordered: ED Orders 06/16/24 02:36 US perip venous low extrem lt Stat 06/16/24 02:44 CBC Auto Diff [Complete Blood Count AUTO DIFF] Stat CMP [Comprehensive Metabolic Panel] Stat PT [Prothrombin Time INR] Stat Vital Signs Vital signs: Vital Signs - 8 hr 06/16/24 02:36 06/16/24 02:38 06/16/24 03:00 Temperature 96.4 F L Pulse Rate 61 58 L Respiratory Rate 17 Blood Pressure 180/74 H 175/77 H Pulse Oximetry 99 98 Oxygen Delivery Method Room Air 06/16/24 03:00 06/16/24 03:30 06/16/24 03:30 Temperature Pulse Rate 57 L 62 Respiratory Rate Blood Pressure 158/71 H Pulse Oximetry 97 97 Oxygen Delivery Method Room Air MDM - Extremity Injury (Lower) Differential Diagnosis Differential diagnosis: Likely other (knee sprain, DVT, arthritis) Lab Data 06/16/24 02:44 06/16/24 02:44 Labs: Lab Results 06/16/24 Range/Units 02:44 WBC 7.2 (4.5-11.0) X10^3/uL RBC 4.30 L (4.5-5.9) X10^6/uL Hgb 13.2 L (13.5-17.5) g/dL Hct 39.3 L (41-53) % MCV 91.3 (80-100) fL MCH 30.6 (26-34) PG MCHC 33.5 (30-36) % RDW 13.5 (11.6-14.8) % Plt Count 179 (150-400) X10^3/uL Neut % (Auto) 62.9 (50-75) % Lymph % (Auto) 17.8 L (25-40) % [place] % (Auto) 15.0 H (3-14) % Eos % (Auto) 3.5 (2-4) % Baso % (Auto) 0.8 (0-2) % Neut # (Auto) 4500 (1201-1286) /uL Lymph # (Auto) 1300 (9819-1348) /uL [place] # (Auto) 1100 H (0-900) /uL Eos # (Auto) 300 (0-450) /uL Baso # (Auto) 100 (0-100) /uL PT 11.0 (9.4-12.5) SECONDS INR 1.0 (0.9-1.3) Sodium 135 L (137-145) mmol/L Potassium 4.1 (3.4-5.1) mmol/L Chloride 104 (98-107) mmol/L Carbon Dioxide 26 (22-32) mmol/L BUN 25 H (9-20) mg/dL Creatinine 1.04 (0.66-1.25) mg/dL Estimated GFR > 60 (>60) mL/min BUN/Creatinine Ratio 24.0 H (6-22) Glucose 113 H (80-110) mg/dL Calcium 8.9 (8.4-10.2) mg/dL Total Bilirubin 0.9 (0.2-1.3) mg/dL AST 33 (17-59) IU/L ALT 24 (<50) IU/L Alkaline Phosphatase 88 (38-126) U/L Total Protein 6.9 (6.3-8.2) g/dL Albumin 3.8 (3.5-5.0) g/dL Globulin 3.1 (1.7-4.1) g/dL Albumin/Globulin Ratio 1.2 (1.0-2.8) Imaging Data US - DVT: Radiologist's Impression: Preliminary review: No DVT, small Cramer cyst MDM Narrative Medical decision making narrative: Well-appearing patient with 1 week of symptoms, worsened over the last 1-2 days. There is no obvious, significant swelling of the LLE, however there is trace edema around the L sock border that isn't present on the right side. Neurovascularly intact, NIH 0. Laboratory work, ultrasound imaging to be ordered. Laboratory work reviewed, no significant abnormalities identified, consistent with the patient's previous results. Ultrasound negative for DVT, small Cramer's cyst noted on the left lower extremity. Patient counseled on lab and imaging findings. Recommended PCP follow up as well as wearing compression stockings, elevating his feet when at rest. Discharge Plan Departure Patient Disposition: Home Clinical Impression: Cramer's cyst, Leg swelling Instructions: DI for Cramer Cyst Activity Restrictions/Additional Instructions: Your ultrasound today did not show any evidence of a blood clot. You do have something called a ?Cramer's cyst? behind your left knee, which can sometimes cause leg swelling, but is a normal finding in many people. Wear compression stockings during the day and elevate your legs when at rest. Follow up with your primary care doctor Prescriptions: No Action losartan 50 mg tablet 50 mg PO DAILY tamsulosin 0.4 mg capsule 0.4 mg PO DAILY simvastatin 20 mg tablet 20 mg PO DAILY metoprolol succinate 25 mg tablet extended release 24 hr 25 mg PO DAILY lactulose 20 gram/30 mL solution 20 g PO BID Qty: 600 0RF Referrals: Bharat Lawson MD [Primary Care Provider] - Stand Alone Forms: Patient Portal/API/Survey
[2024-06-16 02:38] VITALS: BP 180/74; PULSE 58; RESP 17; TEMP 35.8; O2SAT 98; BMI 26.4
[2024-06-16 02:54] LABS: Add Manual Diff / Slide Review NO; Basophils Absolute Auto 100 /uL (0-100); Basophils Percent Auto 0.8 % (0-2); Eosinophils Absolute Auto 300 /uL (0-450); Eosinophils Percent Auto 3.5 % (2-4); Hematocrit 39.3 % (41-53); Hemoglobin 13.2 g/dL (13.5-17.5); Lymphocytes Absolute Auto 1300 /uL (1100-4500); Lymphocytes Percent Auto 17.8 % (25-40); Mean Corpuscular HGB Conc 33.5 % (30-36); Mean Corpuscular Hemoglobin 30.6 PG (26-34); Mean Corpuscular Volume 91.3 fL (80-100); Monocytes Absolute Auto 1100 /uL (0-900); Neutrophils Absolute Auto 4500 /uL (1500-7000); Neutrophils Percent Auto 62.9 % (50-75); Platelet Count 179 X10^3/uL (150-400); Red Cell Distribution Width 13.5 % (11.6-14.8); White Blood Cell Count 7.2 X10^3/uL (4.5-11.0)
--- NOTE | 2024-06-16 02:59 | PC.NURSE ---
US at bedside
[2024-06-16 03:00] VITALS: BP 175/77; PULSE 57; O2SAT 97
[2024-06-16 03:05] LABS: Alanine Aminotransferase 24 IU/L (<50); Albumin 3.8 g/dL (3.5-5.0); Albumin Globulin Ratio 1.2 (1.0-2.8); Alkaline Phosphatase 88 U/L (38-126); Aspartate Aminotransferase 33 IU/L (17-59); Bilirubin Total 0.9 mg/dL (0.2-1.3); Blood Urea Nitrogen 25 mg/dL (9-20); Calcium 8.9 mg/dL (8.4-10.2); Carbon Dioxide 26 mmol/L (22-32); Chloride 104 mmol/L (98-107); Estimated Glomerular Filt Rate > 60 mL/min (>60); Globulin 3.1 g/dL (1.7-4.1); Glucose 113 mg/dL (80-110); HEMOLYSIS < 15 (0-50); Potassium 4.1 mmol/L (3.4-5.1); Sodium 135 mmol/L (137-145); Total Protein 6.9 g/dL (6.3-8.2)
[2024-06-16 03:30] VITALS: BP 158/71; PULSE 62; O2SAT 97
== END 2024-06-16 03:59 | disposition home or self-care (01) ==
PROVIDERS: Emergency Provider Emergency Medicine; PCP Internal Medicine
DX: M71.22 Synovial cyst of popliteal space [Baker], left knee (principal); R60.0 Localized edema
CPT/HCPCS: 36415; 80053; 85025; 85610; 93971; 99283; 99284

== ENCOUNTER 2024-06-21 02:30 | Emergency (ER) | payer OTHER, SELFPAY ==
[2022-12-28 23:03] VITALS: BMI 27.0
[2024-06-21 02:36] VITALS: PULSE 64; O2SAT 95
[2024-06-21 02:45] VITALS: BP 192/84; PULSE 65; RESP 18; TEMP 36.6; O2SAT 95; BMI 27.2
--- NOTE | 2024-06-21 02:50 | ED.MALEGU ---
HPI - Male Genitourinary General Chief complaint: Urogenital-Male Stated complaint: cant go to bathroom Time Seen by Provider: 06/21/24 02:42 Source: patient Mode of arrival: Ambulatory History of Present Illness HPI Narrative: Patient is a 80-year-old male history of coronary artery disease hypertension, BPH, presenting today with inability urinate. He does have some regular ED visits his last visit was June 16 or he has some left knee pain, during that visit he would blood work and ultrasound and ultimately discharged home with a Cramer's cyst. He has a use presenting with frequent urination. He denies any dysuria or hematuria. But he reports significant change in his stream. He has no back pain nausea or vomiting. He is abdominal pain. He says this is been ongoing for least the last 2 days. Related Data Home Medications Medication Instructions Recorded Confirmed losartan 50 mg tablet 50 mg PO DAILY 12/29/22 12/29/22 metoprolol succinate 25 mg 25 mg PO DAILY 12/29/22 12/29/22 tablet,extended release 24 hr simvastatin 20 mg tablet 20 mg PO DAILY 12/29/22 12/29/22 tamsulosin 0.4 mg capsule 0.4 mg PO DAILY 12/29/22 12/29/22 Previous Rx's Medication Instructions Recorded lactulose 20 gram/30 mL oral 20 g (30 mL) PO BID #600 mL 03/18/24 solution cephalexin 500 mg capsule 500 mg PO BID 7 days #14 caps 06/21/24 Allergies Allergy/AdvReac Type Severity Reaction Status Date / Time lisinopril Allergy ITCHING Verified 06/21/24 02:54 Patient History Medical History Coronary artery disease Hyperlipidemia Hypertension Social History household members: spouse Smoking Status: Former smoker Smoking Status: Former smoker alcohol intake frequency: 0-2 drinks per day Substance Use Type: does not use Exam Initial Vital Signs Initial Vital Signs: Vital Signs Pulse Rate 64 06/21/24 02:36 Pulse Oximetry 95 06/21/24 02:36 GENERAL: Alert pleasant well-appearing 80-year-old male appears younger than stated age and in no acute distress. HEENT: Head atraumatic,EOMI, pupils reactive, face symmetric, moist mucous membranes CARDIOVASCULAR: Regular rate and rhythm without murmurs, rubs or gallops. RESPIRATORY: Breath sounds equal bilaterally, no wheezes rales or rhonchi. ABDOMEN: Soft, nontender. Normoactive bowel sounds all 4 quadrants. No guarding or rebound. : No CVA tenderness EXTREMITIES: Normal range of motion, no clubbing or edema. Neurovascularly intact NEUROLOGICAL: Alert and oriented x4.Normal gait and speech. SKIN: Warm, dry, no laceration, no petechiae, no rashes or lesions. Course Orders Ordered: ED Orders 06/21/24 02:44 Urinalysis and Microscopic Stat Urine Culture Stat Discontinued Medications Cephalexin HCl (Cephalexin 250 Mg Capsule) 500 mg PO NOW ONE Stop: 06/21/24 03:37 Last Admin: 06/21/24 03:50 Dose: 500 mg Documented By: GAIL Ciprofloxacin (Ciprofloxacin 250 Mg Tablet) 500 mg PO NOW ONE Stop: 06/21/24 03:26 Last Admin: 06/21/24 03:47 Dose: Not Given Documented By: GAIL Vital Signs Vital signs: Vital Signs - 8 hr 06/21/24 02:36 06/21/24 02:45 06/21/24 03:53 Temperature 97.9 F Pulse Rate 64 65 61 Respiratory Rate 18 Blood Pressure 192/84 H Pulse Oximetry 95 95 96 Oxygen Delivery Method Room Air 06/21/24 03:54 06/21/24 03:54 Temperature Pulse Rate 60 Respiratory Rate 18 Blood Pressure 173/79 H Pulse Oximetry 97 Oxygen Delivery Method Room Air MDM - Male Genitourinary Lab Data Labs: Lab Results 06/21/24 Range/Units 02:44 Urine Color Yellow Urine Appearance Turbid Urine pH 7.5 (4.5-8.0) Ur Specific [place] 1.015 (1.000-1.035) Urine Protein 2+ H (Negative) Urine Glucose (UA) Negative (Negative) g/dL Urine Ketones Negative (NEGATIVE) Urine Occult Blood 1+ H (Negative) Urine Nitrate Positive H (Negative) Urine Bilirubin Negative (NEGATIVE) Urine Urobilinogen 0.2 (0.2) E.U./dL Ur Leukocyte Esterase 3+ H (NEGATIVE) Urine RBC 1-5/hpf (0-5/HPF) Urine WBC >100/hpf H (0-5/HPF) Ur Squamous Epith Cells 0-1 /hpf (0-5/HPF) Urine Bacteria Many (>30) H (None) Ur Culture Indicated? Specimen cultured Vol Urine Centrifuged 10ml (spun) MDM Narrative Medical decision making narrative: Patient 80-year-old male overall appears well vitals are stable he has no flank pain or abdominal pain. Urine is concerning for UTI. Patient has no prior history of UTI. He overall appears well nontoxic. Urine positive for nitrites and leukocytes. Patient is given 1st dose of antibiotic Keflex here in the ED. at this time I do not think he needs blood work because he was vitals are well and he appears well. Discussion with patient about if symptoms worsen to return to ED. Discharge Plan Departure Patient Disposition: Home Clinical Impression: Acute UTI Instructions: DI for Urinary Tract Infection (UTI) Activity Restrictions/Additional Instructions: *You have been diagnosed with UTI *What to do: At this time increase fluids as tolerated. Antibiotics should kick in in the next 2-3 days should start feeling better. *Continue to take medications as directed Keflex 500 mg twice a day for 7 days--> [facility] *Follow up with your primary care provider in 2-3 days or call [phone] *Return to ER if you should have increasing confusion abdominal pain flank pain nausea vomiting or any new, worsening or concerning symptoms Prescriptions: New cephalexin 500 mg capsule 500 mg PO BID 7 Days Qty: 14 0RF No Action losartan 50 mg tablet 50 mg PO DAILY tamsulosin 0.4 mg capsule 0.4 mg PO DAILY simvastatin 20 mg tablet 20 mg PO DAILY metoprolol succinate 25 mg tablet extended release 24 hr 25 mg PO DAILY lactulose 20 gram/30 mL solution 20 g PO BID Qty: 600 0RF Referrals: Bharat Lawson MD [Primary Care Provider] - Stand Alone Forms: Patient Portal/API/Survey
--- NOTE | 2024-06-21 02:56 | PC.NURSE ---
Bladder scan showed 216ml in patient's bladder. Five minutes later, pt was only able to urinate 40ml. Dr. Seda navarrete.
[2024-06-21 03:20] LABS: Appearance Urine UA Turbid; Bilirubin Urine UA NEGATIVE (NEGATIVE); Color Urine UA YELLOW; Glucose Urine UA NEGATIVE (Negative); Ketones Urine UA NEGATIVE (NEGATIVE); Leukocyte Esterase Urine UA 3+ (NEGATIVE); Nitrite Urine UA POSITIVE (Negative); Occult Blood Urine UA 1+ (Negative); Protein Urine UA 2+ (Negative); Specific Gravity Urine UA 1.015 (1.000-1.035); Urine Volume 10mL (spun); Urobilinogen Urine UA 0.2 E.U./dL (0.2); pH Urine UA 7.5 (4.5-8.0)
[2024-06-21 03:21] LABS: Bacteria Urine Many (>30); Culture Indicated Urine Specimen Cultured; RBC Urine 1-5/HPF (0-5/HPF); Squamous Epithelial Cell Urine 0-1 /HPF (0-5/HPF); WBC Urine >100/HPF (0-5/HPF)
[2024-06-21] MEDS: cephALEXin 250 MG CAPSULE 500 MG PO (03:50)
[2024-06-21 03:53] VITALS: PULSE 61; O2SAT 96
[2024-06-21 03:54] VITALS: BP 173/79; PULSE 60; RESP 18; O2SAT 97
== END 2024-06-21 03:58 | disposition home or self-care (01) ==
PROVIDERS: Emergency Provider Emergency Medicine; PCP Internal Medicine
DX: N39.0 Urinary tract infection, site not specified (principal)
CPT/HCPCS: 81001; 87077; 87086; 87186; 99283

== ENCOUNTER → 2025-03-02 09:47 | Outpatient (CLI) | payer OTHER, SELFPAY ==
[2022-12-28 23:03] VITALS: BMI 27.0
--- NOTE | 2025-03-02 09:50 | DI.RAD.S_ITS ---
PROCEDURE: XR SHOULDER RT MIN 2V INDICATIONS: Pain in right shoulder TECHNIQUE: Three views of the right shoulder were acquired. COMPARISON: None. FINDINGS: Bones: There are no osseous abnormalities. Acromioclavicular and glenohumeral joints: Mild degeneration Soft tissues: No soft tissue swelling, calcification or mass. IMPRESSION: Mild degeneration Dictated by: Zev Rouse M.D. on 03/02/2025 at 12:35 Approved by: Zev Rouse M.D. on 03/02/2025 at 12:36
== END ==
PROVIDERS: PCP Family Medicine; Referring Provider Family Medicine; Visit Provider Family Medicine
DX: M19.011 Primary osteoarthritis, right shoulder (principal); M25.511 Pain in right shoulder
CPT/HCPCS: 73030

== ENCOUNTER 2025-06-10 12:26 | Emergency (ER) | payer OTHER, SELFPAY ==
[2022-12-28 23:03] VITALS: BMI 27.0
[2025-06-10 12:36] VITALS: BP 191/61; PULSE 80; RESP 16; TEMP 36.2; O2SAT 98; BMI 27.5
--- NOTE | 2025-06-10 12:42 | DI.RAD.S_ITS ---
PROCEDURE: XR KNEE LT 3V
[2025-06-10] MEDS: KETOROLAC 30 MG/ML VIAL IV (12:46)
--- NOTE | 2025-06-10 13:07 | ED_ITS ---
<Statement entered by Zev Dunbar, DO - 06/10/25 18:14>
--- NOTE | 2025-06-10 13:07 | ED.EXTPRO ---
HPI - Extremity Problem General Chief complaint: Extremity Problem,Nontraumatic Stated complaint: Pain of LT knee, swollen on/off 1mon Time Seen by Provider: 06/10/25 12:50 Mode of arrival: Ambulatory History of Present Illness HPI Narrative: 89-year-old male with a history of hypertension here for left knee pain off and on for about 1 month. States that his knee is swollen and is more painful when walking and when he twists even slightly. Also notes the pain is worse after prolonged resting when he starts to move around. He denies any past history of knee problems and has not ever been diagnosed with arthritis or any other knee issues. No history of blood clots. He is not on blood thinners. He denies any trauma or known injury to the knee prior to the onset. He has not been taking any [id number] pain relievers for his knee pain. He was working up until a few weeks ago but decided to stop because of his knee pain. No numbness or tingling. No weakness. No back pain or calf pain Related Data Home Medications ?Medication ?Instructions ?Recorded ?Confirmed losartan 50 mg tablet 50 mg PO DAILY 12/29/22 12/29/22 metoprolol succinate 25 mg 25 mg PO DAILY 12/29/22 12/29/22 tablet,extended release 24 hr simvastatin 20 mg tablet 20 mg PO DAILY 12/29/22 12/29/22 tamsulosin 0.4 mg capsule 0.4 mg PO DAILY 12/29/22 12/29/22 Previous Rx's ?Medication ?Instructions ?Recorded lactulose 20 gram/30 mL oral 20 g (30 mL) PO BID #600 mL 03/18/24 solution Allergies Allergy/AdvReac Type Severity Reaction Status Date / Time lisinopril Allergy ITCHING Verified 06/21/24 02:54 Review of Systems Review of Systems ROS Unobtainable: All systems reviewed & are unremarkable except as noted in HPI and below Patient History Medical History Coronary artery disease Hyperlipidemia Hypertension Social History household members: spouse alcohol intake frequency: 0-2 drinks per day Exam Narrative Exam Narrative: GENERAL: [89] year old patient appears stated age. Well-developed patient, in no acute distress. HEAD: Atraumatic. Normocephalic. EYES: Pupils equal round and reactive. Extraocular motions intact. No scleral icterus. No injection or drainage. ENT: Nose without bleeding, purulent drainage. Airway patent. NECK: Trachea midline. Non tender CARDIOVASCULAR: Regular rate and rhythm without murmurs, gallops, or rubs. RESPIRATORY: Clear to auscultation. Breath sounds equal bilaterally. No wheezes, rales, or rhonchi. EXTREMITIES: Left knee is mildly visibly swollen but without erythema or warmth to the touch. There is no erythema or edema or tenderness of the calf or thigh. Negative Homans sign. Normal distal pulses. No pinpoint tenderness anywhere on the left knee. Normal flexion and extension. Walking independently but carefully with a slight limp. NEURO: AOx3. SKIN: No rash or erythema of visible areas Initial Vital Signs Initial Vital Signs: Vital Signs Temperature 97.1 F L 06/10/25 12:36 Pulse Rate 80 06/10/25 12:36 Respiratory Rate 16 06/10/25 12:36 Blood Pressure 191/61 H 06/10/25 12:36 Pulse Oximetry 98 06/10/25 12:36 Oxygen Delivery Method Room Air 06/10/25 12:36 Course Orders Ordered: ED Orders 06/10/25 12:42 XR knee LT 3V Stat Discontinued Medications Ketorolac Tromethamine (Ketorolac 30 Mg/Ml Vial) 30 mg IV NOW ONE Stop: 06/10/25 12:43 Last Admin: 06/10/25 12:46 Dose: 30 mg Documented By: MATY Vital Signs Vital signs: Vital Signs - 8 hr 06/10/25 12:36 Temperature 97.1 F L Pulse Rate 80 Respiratory Rate 16 Blood Pressure 191/61 H Pulse Oximetry 98 Oxygen Delivery Method Room Air MDM - Extremity (Nontraumatic) Imaging Data Extremity x-ray #1: Radiologist's Impression: [address] [address] XRay Report Signed Patient: Porter Beltre MR#: [id number] : 1935 Acct:[id number] Age/Sex: 89 / M Date of Service: 06/10/25 Loc: ED Accession Number: [id number] Procedure: XR knee LT 3V Ordering Provider: Paty German PA-C PROCEDURE: XR KNEE LT 3V INDICATIONS: L lateral knee pain/mild swelling/arthritis? TECHNIQUE: 3 views of the knee were acquired. COMPARISON: None. FINDINGS: Bones: No fractures or dislocations. No suspicious bony lesions. There is at least moderate tricompartmental joint space narrowing with mild osteophytosis and subchondral sclerosis. This is most prominent in the medial compartment. Soft tissues: No joint effusion. Amorphous calcification is seen adjacent to the lateral meniscus. There is a small joint effusion. IMPRESSION: At least moderate osteoarthritis with a small joint effusion. Dictated by: Anika Hollins M.D. on 06/10/2025 at 12:05 Approved by: Anika Hollins M.D. on 06/10/2025 at 12:07 [facility] Narrative Medical decision making narrative: Multiple etiologies for patient's symptoms considered including, but not limited to: Osteoarthritis, meniscus injury, ligament injury, tendinitis, septic knee, DVT Patient here with atraumatic left knee pain for 1 month. Worse with twisting motions and when moving after prolonged periods of rest. Feels stiff. No previous diagnosis of arthritis. His knee is slightly visibly swollen with no erythema or warmth. He is ambulating independently with a slight limp. Able to flex and extend the knee. No erythema or edema or tenderness of the calf or the thigh. No evidence on exam of a blood clot and no personal history of 1. His knee x-ray shows moderate osteoarthritis of the left knee with a small effusion. This is consistent with his history and exam. We discussed OA and how to relieve an acute flare-up and chronic management such as physical therapy and specific exercises to strengthen the quad muscle. Follow up with PCP for PT referral and ortho referral. Patient's symptoms improved with Toradol 30 mg IM today. Findings and discharge diagnosis discussed with patient followed by verbalization of understanding Return precautions discussed with patient whom verbalize understanding of diagnosis and plan Discharge Plan Departure Patient Disposition: Home Clinical Impression: Acute pain of left knee Instructions: DI for Osteoarthritis, Certain Exercises May Help People with Knee Osteoarthritis Activity Restrictions/Additional Instructions: Thank you for choosing us to care for you today. Your left knee x-ray revealed that you have moderate osteoarthritis with some mild swelling in the joint. For the swelling and pain you can take ibuprofen 600 mg every 6-8 hours for the next 3-5 days. After that you can switch to Voltaren gel which can be found over the counter at the pharmacy. I also recommend you see your primary care physician to get a referral for physical therapy and possibly to see an it security specialist as well to discuss the next steps. Specific exercises for osteoarthritis can be very good for your knee. You may look these up on your computer at home to get an idea of what exercises are best for your knee and to strengthen your quadriceps muscle. If you have any significant swelling, severe pain, fevers, or inability to bend your knee or bear weight on it then please return for re-evaluation. Prescriptions: No Action losartan 50 mg tablet 50 mg PO DAILY tamsulosin 0.4 mg capsule 0.4 mg PO DAILY simvastatin 20 mg tablet 20 mg PO DAILY metoprolol succinate 25 mg tablet extended release 24 hr 25 mg PO DAILY lactulose 20 gram/30 mL solution 20 g PO BID Qty: 600 0RF Referrals: Dov Velasquez MD [Primary Care Provider, Family Practice] Stand Alone Forms: Patient Portal/API
[2025-06-10 13:33] VITALS: BP 165/69; PULSE 55; RESP 16; TEMP 36.4; O2SAT 98
== END 2025-06-10 13:49 | disposition home or self-care (01) ==
PROVIDERS: Emergency Provider Physician Assistant; PCP Family Medicine
DX: M25.562 Pain in left knee (principal)
CPT/HCPCS: 73562; 96374; 99283; 99284; J1885

== ENCOUNTER → 2025-06-22 08:36 | Outpatient (CLI) | payer OTHER, SELFPAY ==
[2022-12-28 23:03] VITALS: BMI 27.0
--- NOTE | 2025-06-22 08:37 | DI.ECHO.S_ITS ---
[facility] : : [address] : [place] : : [id number] : : Phone: [phone] Echocardiogram Report + + :Name: ALBERT SHARMA Study Date: 06/22/2025 Height: 69 in : :[facility] ReadingLocation: Weight: 192 lb : : Gender: Male BSA: 2.0 m2 : :: 1935 Age: 89 yrs BP: 138/58 mmHg: :Reason For Study: Edema : :Ordering Physician: TYRA, : :LUZ MARINA Dickson Performed By: Keren Hassan : :Referring: LUZ MARINA MARY : + + Interpretation Summary The ejection fraction is estimated to be 55-60%. There is akinesis of basal to mid inferior, basal to mid inferolateral and basal inferoseptal matthews. Diastolic function is indeterminate. The left atrium is moderately dilated. The right ventricle grossly appears normal in size with probable normal systolic function. No significant valvular abnormalities. Pulmonary artery pressures cannot be estimated because of the lack of a measurable TR jet velocity but the IVC suggests a CVP of around 3 mmHg. The ascending aorta is mildly enlarged. Compared to the prior study 12/29/2022, the ascending aorta has increased in size. Procedure: A two-dimensional transthoracic echocardiogram with color flow and Doppler was performed. The study quality was technically adequate. Comparison is made with the echocardiogram of 12-29-22. The heart rate ranged between 62-64 bpm during the study. Left Ventricle: The left ventricle is normal in size and wall thickness. The ejection fraction is estimated to be 55-60%. There is akinesis of basal to mid inferior, basal to mid inferolateral and basal inferoseptal matthews. Diastolic function is indeterminate. Right Ventricle: The right ventricle grossly appears normal in size with probable normal systolic function. Atria: The left atrium is moderately dilated. Borderline right atrial enlargement. The interatrial septum grossly appears intact with no obvious evidence for an atrial septal defect. Mitral Valve: The mitral valve leaflets appear mildly thickened. There is trace mitral regurgitation. Aortic Valve: The aortic valve is trileaflet. The aortic valve opens well. There is no aortic valve stenosis. No aortic regurgitation is present. Tricuspid Valve: The tricuspid valve leaflets are thin and pliable. There is trace tricuspid regurgitation. Pulmonary artery pressures cannot be estimated because of the lack of a measurable TR jet velocity but the IVC suggests a CVP of around 3 mmHg. Pulmonic Valve: The pulmonic valve is not well visualized. There is no pulmonic valvular regurgitation. Great Vessels: The aortic root is normal size. The ascending aorta is mildly enlarged. The aortic arch is normal in size. The IVC is of normal diameter and collapses greater than 50% with a sniff. This suggests a low right atrial pressure of 3 mm Hg. Pericardium/ Pleura There is no pericardial effusion. There is no pleural effusion. MMode/2D Measurements & Calculations LVIDd: 5.5 cm LVOT diam: 1.9 cm LVIDs: 3.5 cm Ao root diam: 3.6 cm FS: 36.7 % asc Aorta Diam: 4.1 cm EPSS: 0.59 cm Ao Arch Diam (Prox Trans): 3.2 cm IVSd: 0.98 cm LVPWd: 0.99 cm LV isbell. diameter/BSA (cm/m^2): 2.7 LV sys. diameter/BSA (cm/m^2): 1.7 LA A2 area: 24.9 cm2 RA long axis: 5.4 cm LA A4 area: 23.9 cm2 RA area: 21.7 cm2 LA length (vol): 5.5 cm RA vol: 73.6 ml LA vol: 91.4 ml RA : 36.3 ml/m2 LA vol index: 45.0 ml/m2 IVC diam: 1.3 cm TAPSE: 2.9 cm Doppler Measurements & Calculations Ao V2 max: 157.4 cm/sec LVOT Max Tony: 87.3 cm/sec Ao V2 mean: 108.9 cm/sec LV V1 max P.0 mmHg Ao max P.9 mmHg LV V1 VTI: 21.2 cm Ao mean P.4 mmHg LULÚ(I,D): 1.6 cm2 Ao V2 VTI: 37.9 cm LULÚ(V,D): 1.6 cm2 sev ratio: 0.56 LULÚ indexed to BSA (cm^2/m^2): 0.81 MV E max tony: 79.4 cm/sec TR max tony: 250.4 cm/sec MV A max tony: 108.4 cm/sec TR max P.1 mmHg MV E/A: 0.73 PA V2 max: 88.7 cm/sec Med Peak E' Tony: 7.6 cm/sec PA V2 mean: 58.0 cm/sec E/E' med: 10.5 PA mean P.6 mmHg Lat Peak E' Tony: 8.3 cm/sec PA pr(Accel): 0.22 mmHg E/E' lat: 9.6 E/e' average: 10.1 MV dec time: 0.27 sec SV(LVOT): 62.5 ml Reading Physician:12:28 PM
== END ==
LOC: ECHO 08:36
PROVIDERS: PCP Family Medicine; Referring Provider Family Medicine; Visit Provider Family Medicine
DX: R22.43 Localized swelling, mass and lump, lower limb, bilateral (principal); I77.89 Other specified disorders of arteries and arterioles
CPT/HCPCS: 93306